=== PATIENT | male | born 1950 | race American Indian/Alaskan Native ===

== ENCOUNTER 2019-05-17 00:22 | Inpatient (IN) | payer MEDICARE, OTHER ==
[2019-05-17] MEDS ORDERED: Acetaminophen 500 MG Tab PO ONE (00:51)
[2019-05-17] MEDS ORDERED: Pantoprazole 40 MG Vial IVPUSH ONE ×2 (00:52→08:19)
--- NOTE | 2019-05-17 00:58 | EDM.PDOC ---
ED HPI GENERAL MEDICAL PROBLEM - General Chief Complaint: Abdominal Pain Stated Complaint: STOOL ISSUES Time Seen by Provider: 05/17/19 00:40 Source of Information: Reports: Patient, Old Records History Limitations: Reports: No Limitations - History of Present Illness INITIAL COMMENTS - FREE TEXT/NARRATIVE: 68 yo NA male presents with dark, loose stools x 4 tonight. No vomiting. Feels a little bit of epigastric fullness. Is on ASA daily. Has a pHx of diverticular dz. Is a little dizzy with standing he says, but is a somewhat vague historian. Complains also of some bilateral shoulder and neck pain that has been worse for the past few days. Stools tonight have not been large in volume per patient. Onset Date: 05/16/19 Duration: Hour(s):, Intermittent Location: Reports: Abdomen Quality: Reports: Dull Severity: Mild Improves with: Reports: None Worsens with: Reports: Other (unknown, ? from his ASA) Context: Reports: Other (See HPI) Associated Symptoms: Denies: Chest Pain, Diaphoresis, Nausea/Vomiting, Shortness of Breath, Syncope Treatments [employer]: Reports: Other (see below) (none) Middle Abdomen Pain Score (Numeric/FACES): 3 - Related Data Allergies Allergy/AdvReac Type Severity Reaction Status Date / Time No Known Allergies Allergy Verified 05/17/19 00:27 Home Meds: Home Meds ClonazePAM [KlonoPIN] 0.5 mg PO BID PRN 12/15/15 [History] Losartan [Cozaar] 25 mg PO DAILY 12/15/15 [History] Tamsulosin [Flomax] 0.4 mg PO DAILY 12/15/15 [History] buPROPion [buPROPion XL] 300 mg PO BID 12/15/15 [History] Aspirin [Adult Low Dose Aspirin EC] 81 mg PO DAILY 01/16/16 [History] Past Medical History HEENT History: Reports: Allergic Rhinitis, Impaired Vision Cardiovascular History: Reports: Hypertension, [place] Respiratory History: Reports: Bronchitis, Recurrent, Sleep Apnea Gastrointestinal History: Reports: Colon Polyp, Diverticulosis, GERD, Hemorrhoids Genitourinary History: Reports: Prostate Disorder, Renal Calculus Musculoskeletal History: Reports: Fracture, Neck Pain, Chronic, Osteoarthritis Psychiatric History: Reports: Anxiety, Depression, Panic Attack Endocrine/Metabolic History: Reports: Obesity/BMI 30+, Vitamin D Deficiency Hematologic History: Reports: Anticoagulation Therapy Oncologic (Cancer) History: Reports: Prostate - Infectious Disease History Infectious Disease History: Reports: Mumps - Past Surgical History Head Surgeries/Procedures: Reports: None Cardiovascular Surgical History: Reports: None Male Surgical History: Reports: Prostate Biopsy, Renal Calculus, Other (See Below) Other Male Surgeries/Procedures: Prostate CA chemo and radiation 2016. Musculoskeletal Surgical History: Reports: Shoulder Replacement, Other (See Below) Oncologic Surgical History: Reports: Other (See Below) Dermatological Surgical History: Reports: None Social & Family History - Family History Family Medical History: Noncontributory - Tobacco Use Smoking Status *Q: Never Smoker Second Hand Smoke Exposure: No - Caffeine Use Caffeine Use: Reports: Coffee, Energy Drinks, Soda, Tea - Alcohol Use Days Per Week of Alcohol Use: 5 Number of Drinks Per Day: 3 Total Drinks Per Week: 15 - Recreational Drug Use Recreational Drug Use: No ED ROS GENERAL - Review of Systems Review Of Systems: See Below Constitutional: Reports: No Symptoms HEENT: Reports: No Symptoms Respiratory: Reports: No Symptoms Cardiovascular: Reports: Lightheadedness (mild with standing) Endocrine: Reports: No Symptoms GI/Abdominal: Reports: Abdominal Pain (mild epigastric fullness), Black Stool, Diarrhea, Melena. Denies: Bloody Stool, Constipation, Distension, Flatus, Hematemesis, Hematochezia, Nausea, Vomiting : Reports: No Symptoms Musculoskeletal: Reports: No Symptoms Skin: Reports: No Symptoms Neurological: Reports: No Symptoms ED EXAM, GI/ABD - Physical Exam Exam: See Below Exam Limited By: No Limitations General Appearance: Alert, WD/WN, No Apparent Distress Eyes: Bilateral: Normal Appearance Ears: Normal External Exam, Normal Canal, Hearing Grossly Normal Nose: Normal Inspection, No Blood Throat/Mouth: Normal Inspection, No Airway Compromise Head: Atraumatic, Normocephalic Neck: Normal Inspection, Non-Tender Respiratory/Chest: No Respiratory Distress, Lungs Clear, Normal Breath Sounds, No Accessory Muscle Use Cardiovascular: Regular Rate, Rhythm, No Edema, Tachycardia GI/Abdominal Exam: Soft, Non-Tender, No Distention, Abnormal Bowel Sounds ( decreased). No: Normal Bowel Sounds, Distended, Guarding, Rigid, Rebound, Tender Extremities: Normal Inspection, Normal Range of Motion, Non-Tender, No Pedal Edema Neurological: Alert, Oriented, CN II-XII Intact, Normal Cognition, No Motor/ Sensory Deficits Psychiatric: Normal Affect, Normal Mood Skin Exam: Warm, Dry, Intact, Normal Color, No Rash Course - Vital Signs Text/Narrative:: Arabella Keyes called @ 0115h Last Recorded V/S: Last Vital Signs Temp 36.4 C 05/17/19 00:50 Pulse 111 H 05/17/19 00:50 Resp 16 05/17/19 00:50 BP 96/64 05/17/19 00:50 Pulse Ox 98 05/17/19 00:50 - Orders/Labs/Meds Orders: Active Orders 24 hr Category Date Time Status Hemoccult [OCCULT BLOOD DIAGNOSTIC] [OP] Stat Lab 05/17/19 01:06 Ordered TYPE AND SCREEN [BBK] Stat Lab 05/17/19 00:30 Received Sodium Chloride 0.9% [Normal Saline] 1,000 ml Med 05/17/19 01:15 Ordered IV ASDIRECTED Labs: Laboratory Tests 05/17/19 05/17/19 Range/Units 00:30 00:45 WBC 12.1 H (4.5-11.0) K/uL RBC 4.38 (4.30-5.90) M/uL Hgb 11.8 L (12.0-15.0) g/dL Hct 35.4 L (40.0-54.0) % MCV 81 (80-98) fL MCH 27 (27-31) pg MCHC 33 (32-36) % Plt Count 282 (150-400) K/uL Sodium 130 L (140-148) mmol/L Potassium 4.2 (3.6-5.2) mmol/L Chloride 96 L (100-108) mmol/L Carbon Dioxide 23 (21-32) mmol/L Anion Gap 15.2 H (5.0-14.0) mmol/L BUN 43 H D (7-18) mg/dL Creatinine 1.3 (0.8-1.3) mg/dL Est Cr Clr Drug Dosing 52.62 mL/min Estimated GFR (MDRD) 55 L (>60) Glucose 102 (74-106) mg/dL Calcium 8.5 (8.5-10.1) mg/dL Meds: Medications Discontinued Medications Generic Name Dose Route Start Last Admin Trade Name Freq PRN Reason Stop Dose Admin Acetaminophen 1,000 mg 05/17/19 00:51 05/17/19 01:07 Tylenol Extra Strength PO 05/17/19 00:52 1,000 mg ONETIME ONE Administration Pantoprazole Sodium 40 mg 05/17/19 00:52 05/17/19 01:08 Protonix Iv IVPUSH 05/17/19 00:53 40 mg ONETIME ONE Administration Sucralfate 1 gm 05/17/19 01:03 Carafate PO 05/17/19 01:04 ONETIME ONE Departure - Departure Time of Disposition: 13:30 Disposition: Admitted As Inpatient 66 Condition: Poor Clinical Impression: Hyponatremia GI bleed Qualifiers: GI bleed type/associated pathology: melena Qualified Code(s): K92.1 - Melena - Discharge Information *PRESCRIPTION DRUG MONITORING PROGRAM REVIEWED*: No *COPY OF PRESCRIPTION DRUG MONITORING REPORT IN PATIENT KATHLEEN: No Referrals: PCP,None [Primary Care Provider] - Forms: ED Department Discharge Sepsis Event Note - Evaluation Sepsis Screening Result: No Definite Risk - Focused Exam Vital Signs: Vital Signs Temp Pulse Resp BP Pulse Ox 05/17/19 00:50 36.4 C 111 H 16 96/64 98 05/17/19 00:48 36.4 C 111 H 16 96/64 98 Date Exam was Performed: 05/17/19 Time Exam was Performed: 01:13 - My Orders Last 24 Hours: My Active Orders 05/17/19 00:30 TYPE AND SCREEN [BBK] Stat 05/17/19 01:06 Hemoccult [OCCULT BLOOD DIAGNOSTIC] [OP] Stat 05/17/19 01:15 Sodium Chloride 0.9% [Normal Saline] 1,000 ml IV ASDIRECTED - Assessment/Plan Last 24 Hours: My Active Orders 05/17/19 00:30 TYPE AND SCREEN [BBK] Stat 05/17/19 01:06 Hemoccult [OCCULT BLOOD DIAGNOSTIC] [OP] Stat 05/17/19 01:15 Sodium Chloride 0.9% [Normal Saline] 1,000 ml IV ASDIRECTED
[2019-05-17] MEDS ORDERED: Sucralfate 1 GM Tab PO ONE (01:03)
[2019-05-17] MEDS ORDERED: Sodium Chloride 0.9% 1,000 ML IV SCH ×2 (01:15→02:09)
[2019-05-17] MEDS ORDERED: Pantoprazole 40 MG Vial IVPUSH SCH ×2 (01:45→21:00)
[2019-05-17] MEDS ORDERED: Non-Formulary Medication 1 Each (Clonazepam [Klonopin] 0.5 MG) PO PRN (02:09)
[2019-05-17] MEDS ORDERED: Albuterol 0.083% 2.5 MG/3 ML Neb Soln NEB PRN (02:09)
[2019-05-17] MEDS ORDERED: Morphine 2 MG/ML SYRINGE IVPUSH PRN (02:09)
[2019-05-17] MEDS ORDERED: Ondansetron 4 MG/2 ML SDV IV PRN (02:09)
[2019-05-17] MEDS ORDERED: LORazepam 2 MG/ML SDV IV PRN (02:09)
[2019-05-17] MEDS ORDERED: Acetaminophen 325 MG Tab PO PRN (02:09)
[2019-05-17] MEDS ORDERED: Ondansetron 4 MG Tab.DIS PO PRN (02:09)
[2019-05-17] MEDS ORDERED: LORazepam 2 MG/ML SDV IVPUSH ONE (02:40)
--- NOTE | 2019-05-17 02:47 | PCM.HP.2 ---
H&P History of Present Illness - General Date of Service: 05/17/19 Admit Problem/Dx: Admission Diagnosis/Problem Admission Diagnosis/Problem Gastrointestinal hemorrhage Source of Information: Patient, Provider History Limitations: Reports: No Limitations - History of Present Illness Initial Comments - Free Text/Narative: 68 yo NA male presents with dark, loose stools x 4 tonight. No vomiting. Feels a little bit of epigastric fullness. Is on ASA daily. Has a pHx of diverticular dz. Is a little dizzy with standing he says, but is a somewhat vague historian. Complains also of some bilateral shoulder and neck pain that has been worse for the past few days. Stools tonight have not been large in volume per patient. Onset Date: 05/16/19 Onset of Symptoms: Reports: Today Duration of Symptoms: Reports: Hour(s): Location: Reports: Abdomen Quality: Reports: Ache Severity: Moderate Improves with: Reports: None Worsens with: Reports: None Associated Symptoms: Reports: Loss of Appetite (last meal at 1 pm), Nausea/ Vomiting (nausea without vomiting) Middle Abdomen Pain Score (Numeric/FACES): 3 - Related Data Allergies/Adverse Reactions: Allergies Allergy/AdvReac Type Severity Reaction Status Date / Time No Known Allergies Allergy Verified 05/17/19 00:27 Home Medications: Home Meds ClonazePAM [KlonoPIN] 0.5 mg PO BID PRN 12/15/15 [History] Losartan [Cozaar] 25 mg PO DAILY 12/15/15 [History] Tamsulosin [Flomax] 0.4 mg PO DAILY 12/15/15 [History] buPROPion [buPROPion XL] 300 mg PO BID 12/15/15 [History] Aspirin [Adult Low Dose Aspirin EC] 81 mg PO DAILY 01/16/16 [History] Past Medical History HEENT History: Reports: Allergic Rhinitis, Impaired Vision Cardiovascular History: Reports: Hypertension, [place] Respiratory History: Reports: Bronchitis, Recurrent, Sleep Apnea Gastrointestinal History: Reports: Colon Polyp, Diverticulosis, GERD, Hemorrhoids Genitourinary History: Reports: Prostate Disorder, Renal Calculus Musculoskeletal History: Reports: Fracture, Neck Pain, Chronic, Osteoarthritis Psychiatric History: Reports: Anxiety, Depression, Panic Attack Endocrine/Metabolic History: Reports: Obesity/BMI 30+, Vitamin D Deficiency Hematologic History: Reports: Anticoagulation Therapy Oncologic (Cancer) History: Reports: Prostate - Infectious Disease History Infectious Disease History: Reports: Mumps - Past Surgical History Head Surgeries/Procedures: Reports: None Cardiovascular Surgical History: Reports: None Male Surgical History: Reports: Prostate Biopsy, Renal Calculus, Other (See Below) Other Male Surgeries/Procedures: Prostate CA chemo and radiation 2016. Musculoskeletal Surgical History: Reports: Shoulder Replacement, Other (See Below) Oncologic Surgical History: Reports: Other (See Below) Dermatological Surgical History: Reports: None Social & Family History - Family History Family Medical History: Noncontributory - Tobacco Use Smoking Status *Q: Never Smoker Second Hand Smoke Exposure: No - Caffeine Use Caffeine Use: Reports: Coffee, Energy Drinks, Soda, Tea - Alcohol Use Days Per Week of Alcohol Use: 5 Number of Drinks Per Day: 3 Total Drinks Per Week: 15 - Recreational Drug Use Recreational Drug Use: No - Living Situation & Occupation Living situation: Reports: , with Family Occupation: Retired (lives with Daughter [place]ina in [place] [facility]. in [place] Term. has 4 adult children.) H&P Review of Systems - Review of Systems: Review Of Systems: See Below General: Reports: Chills, Malaise HEENT: Reports: No Symptoms Pulmonary: Reports: No Symptoms Cardiovascular: Reports: Lightheadedness Gastrointestinal: Reports: Abdominal Pain (epigastric), Black Stool (reports 4 black stools this evening.), Decreased Appetite (last meal at 1 pm. due to stomache with nausea.), Nausea Genitourinary: Reports: No Symptoms, Other (hx of prostate cancer 2016 with radiation/chemo. frequent urination) Musculoskeletal: Reports: Neck Pain, Shoulder Pain (report rotator cuff injury) , Muscle Pain Skin: Reports: No Symptoms Psychiatric: Reports: No Symptoms Neurological: Reports: No Symptoms Hematologic/Lymphatic: Reports: No Symptoms Immunologic: Reports: No Symptoms Exam - Exam Exam: See Below - Vital Signs Vital Signs: Last Vital Signs Temp 36.4 C 05/17/19 01:55 Pulse 98 05/17/19 01:55 Resp 16 05/17/19 01:55 BP 107/61 05/17/19 01:55 Pulse Ox 98 05/17/19 01:55 Weight: 113.398 kg - Exam General: Alert, Oriented, 4 HEENT: PERRLA, Hearing Intact, Mucosa Moist & [place], Nares Patent, Normal Nasal Septum, Posterior Pharynx Clear, Conjunctiva Clear, EOMI, EACs Clear, TMs Clear Neck: Supple, Trachea Midline, 2 Lungs: Clear to Auscultation, Normal Respiratory Effort Cardiovascular: Regular Rate, Regular Rhythm, Normal S1, Normal S2 GI/Abdominal Exam: Normal Bowel Sounds, Soft, Non-Tender, Distended (Male) Exam: Deferred Rectal (Males) Exam: Deferred, Heme + Stool (exam in ER) Back Exam: Normal Inspection, Full Range of Motion, NT Extremities: Normal Inspection, Normal Range of Motion, Non-Tender, No Pedal Edema, Normal Capillary Refill Skin: Warm, Dry, Intact Neurological: Strength Equal Bilateral Neuro Extensive - Mental Status: Alert, Oriented x3, Normal Mood/Affect, Normal Cognition Neuro Extensive - Motor, Sensory, Reflexes: CN II-XII Intact, Normal Gait, Normal Reflexes Psychiatric: Alert, Normal Affect, Normal Mood - Patient Data Lab Results Last 24 hrs: Laboratory Results - last 24 hr 05/17/19 05/17/19 05/17/19 Range/Units 00:30 00:30 00:30 WBC (4.5-11.0) K/uL RBC (4.30-5.90) M/uL Hgb (12.0-15.0) g/dL Hct (40.0-54.0) % MCV (80-98) fL MCH (27-31) pg MCHC (32-36) % Plt Count (150-400) K/uL PT 11.5 (9.5-12.0) sec INR 1.07 (0.80-1.20) Sodium 130 L (140-148) mmol/L Potassium 4.2 (3.6-5.2) mmol/L Chloride 96 L (100-108) mmol/L Carbon Dioxide 23 (21-32) mmol/L Anion Gap 15.2 H (5.0-14.0) mmol/L BUN 43 H D (7-18) mg/dL Creatinine 1.3 (0.8-1.3) mg/dL Est Cr Clr Drug Dosing 52.62 mL/min Estimated GFR (MDRD) 55 L (>60) Glucose 102 (74-106) mg/dL Calcium 8.5 (8.5-10.1) mg/dL Magnesium (1.8-2.4) mg/dL Total Bilirubin (0.2-1.0) mg/dL Direct Bilirubin (0.0-0.2) mg/dL Indirect Bilirubin AST (15-37) U/L ALT (12-78) U/L Alkaline Phosphatase (46-116) U/L Ammonia (11-32) mmol/L Total Protein (6.4-8.2) g/dL Albumin (3.4-5.0) g/dL Globulin (2.3-3.5) g/dL Albumin/Globulin Ratio (1.2-2.2) Amylase (25-115) U/L Lipase (73-393) U/L Blood Type O POSITIVE Gel Antibody Screen Negative 05/17/19 05/17/19 05/17/19 Range/Units 00:30 00:30 00:45 WBC 12.1 H (4.5-11.0) K/uL RBC 4.38 (4.30-5.90) M/uL Hgb 11.8 L (12.0-15.0) g/dL Hct 35.4 L (40.0-54.0) % MCV 81 (80-98) fL MCH 27 (27-31) pg MCHC 33 (32-36) % Plt Count 282 (150-400) K/uL PT (9.5-12.0) sec INR (0.80-1.20) Sodium (140-148) mmol/L Potassium (3.6-5.2) mmol/L Chloride (100-108) mmol/L Carbon Dioxide (21-32) mmol/L Anion Gap (5.0-14.0) mmol/L BUN (7-18) mg/dL Creatinine (0.8-1.3) mg/dL Est Cr Clr Drug Dosing mL/min Estimated GFR (MDRD) (>60) Glucose (74-106) mg/dL Calcium (8.5-10.1) mg/dL Magnesium 1.8 (1.8-2.4) mg/dL Total Bilirubin 0.8 (0.2-1.0) mg/dL Direct Bilirubin 0.28 H (0.0-0.2) mg/dL Indirect Bilirubin 0.52 AST 154 H D (15-37) U/L ALT 159 H (12-78) U/L Alkaline Phosphatase 80 (46-116) U/L Ammonia (11-32) mmol/L Total Protein 6.9 (6.4-8.2) g/dL Albumin 3.2 L (3.4-5.0) g/dL Globulin 3.7 H (2.3-3.5) g/dL Albumin/Globulin Ratio 0.9 L (1.2-2.2) Amylase 51 (25-115) U/L Lipase 85 (73-393) U/L Blood Type Gel Antibody Screen 05/17/19 Range/Units 02:15 WBC (4.5-11.0) K/uL RBC (4.30-5.90) M/uL Hgb (12.0-15.0) g/dL Hct (40.0-54.0) % MCV (80-98) fL MCH (27-31) pg MCHC (32-36) % Plt Count (150-400) K/uL PT (9.5-12.0) sec INR (0.80-1.20) Sodium (140-148) mmol/L Potassium (3.6-5.2) mmol/L Chloride (100-108) mmol/L Carbon Dioxide (21-32) mmol/L Anion Gap (5.0-14.0) mmol/L BUN (7-18) mg/dL Creatinine (0.8-1.3) mg/dL Est Cr Clr Drug Dosing mL/min Estimated GFR (MDRD) (>60) Glucose (74-106) mg/dL Calcium (8.5-10.1) mg/dL Magnesium (1.8-2.4) mg/dL Total Bilirubin (0.2-1.0) mg/dL Direct Bilirubin (0.0-0.2) mg/dL Indirect Bilirubin AST (15-37) U/L ALT (12-78) U/L Alkaline Phosphatase (46-116) U/L Ammonia 22 (11-32) mmol/L Total Protein (6.4-8.2) g/dL Albumin (3.4-5.0) g/dL Globulin (2.3-3.5) g/dL Albumin/Globulin Ratio (1.2-2.2) Amylase (25-115) U/L Lipase (73-393) U/L Blood Type Gel Antibody Screen Result Diagrams: 05/17/19 00:45 05/17/19 00:30 Raciel Results Last 24 hrs: Microbiology 05/17/19 01:19 Stool Occult Blood (RACIEL) - Final Stool / Feces - Stool, Liquid Sepsis Event Note - Evaluation Sepsis Screening Result: No Definite Risk - Focused Exam Vital Signs: Vital Signs Temp Pulse Resp BP Pulse Ox 05/17/19 01:55 36.4 C 98 16 107/61 98 05/17/19 00:50 36.4 C 111 H 16 96/64 98 05/17/19 00:48 36.4 C 111 H 16 96/64 98 Date Exam was Performed: 05/17/19 Time Exam was Performed: 03:18 - Problem List (1) GI bleed SNOMED Code(s): 05631906 ICD Code: K92.2 - GASTROINTESTINAL HEMORRHAGE, UNSPECIFIED Status: Acute Priority: High Current Visit: Yes Qualifiers: GI bleed type/associated pathology: melena Qualified Code(s): K92.1 - Melena (2) Alcohol consumption four to six days per week SNOMED Code(s): 876815402 ICD Code: Z78.9 - OTHER SPECIFIED HEALTH STATUS Status: Acute Priority: High Current Visit: Yes (3) Prostate cancer SNOMED Code(s): 276507758 ICD Code: C61 - MALIGNANT NEOPLASM OF PROSTATE Status: Chronic Priority: Low Current Visit: No Problem List Initiated/Reviewed/Updated: Yes Orders Last 24hrs: Active Orders 24 hr Category Date Time Status CIWAA Assessment [RC] Q4H Care 05/17/19 02:41 Ordered Cardiac Monitoring [RC] .As Directed Care 05/17/19 01:43 Active Cardiac Monitoring [RC] CONTINUOUS Care 05/17/19 02:09 Active Head of Bed Elevation [RC] ASDIRECTED Care 05/17/19 02:09 Active Intake and Output [RC] QSHIFT Care 05/17/19 02:09 Active Notify Provider Consults [RC] ASDIRECTED Care 05/17/19 02:09 Active Notify Provider Vital Signs [RC] ASDIRECTED Care 05/17/19 02:09 Active Oxygen Therapy [RC] PRN Care 05/17/19 02:09 Active Pulse Oximetry [RC] PRN Care 05/17/19 02:09 Active RT Aerosol Therapy [RC] ASDIRECTED Care 05/17/19 02:09 Active Up ad Yazmin [RC] ASDIRECTED Care 05/17/19 02:09 Active VTE/DVT Education [RC] Per Unit Routine Care 05/17/19 02:09 Active Vital Signs [RC] Q4H Care 05/17/19 02:09 Active Consult to Physician [CONS] Routine Cons 05/17/19 02:09 Ordered Nothing per Oral Now Diet [DIET] Diet 05/17/19 Breakfast Active BLOOD BANK HOLD SPECIMEN [BBK] Urgent Lab 05/17/19 02:09 Ordered CBC WITH AUTO DIFF [HEME] Routine Lab 05/17/19 07:10 Ordered RED BLOOD CELLS LP [BBK] Urgent Lab 05/17/19 02:09 Ordered Acetaminophen [Tylenol] Med 05/17/19 02:09 Active 650 mg PO Q4H PRN Albuterol [Proventil Neb Soln] Med 05/17/19 02:09 Active 2.5 mg NEB Q4H PRN ClonazePAM [KlonoPIN] Med 05/17/19 02:09 Active 0.5 mg PO BID PRN LORazepam [Ativan] Med 05/17/19 02:09 Active 1 mg IV Q6H PRN LORazepam [Ativan] Med 05/17/19 02:40 Once 1 mg IVPUSH ONETIME ONE Losartan [Cozaar] Med 05/17/19 09:00 Active 25 mg PO DAILY Morphine Med 05/17/19 02:09 Active 2 mg IVPUSH Q2H PRN Ondansetron [Zofran ODT] Med 05/17/19 02:09 Active 4 mg PO Q6H PRN Ondansetron [Zofran] Med 05/17/19 02:09 Active 4 mg IV Q4H PRN Pantoprazole [ProTONIX IV] Med 05/17/19 01:45 Active 40 mg IVPUSH DAILY Sodium Chloride 0.9% [Normal Saline] 1,000 ml Med 05/17/19 01:15 Active IV ASDIRECTED Sodium Chloride 0.9% [Normal Saline] 1,000 ml Med 05/17/19 02:09 Active IV ASDIRECTED Tamsulosin [Flomax] Med 05/17/19 09:00 Active 0.4 mg PO DAILY buPROPion [Wellbutrin XL] Med 01/08/20 09:00 Active 300 mg PO BID oxyCODONE Med 05/17/19 02:09 Active 10 mg PO Q4H PRN Sequential Compression Device [OM.PC] Per Unit Routine Oth 05/17/19 02:09 Ordered Resuscitation Status Routine Resus Stat 05/17/19 01:54 Ordered Medication Orders Acetaminophen (Tylenol) 650 mg PO Q4H PRN PRN Reason: Pain (Mild 1-3)/fever Albuterol (Proventil Neb Soln) 2.5 mg NEB Q4H PRN PRN Reason: Shortness Of Breath/wheezing Bupropion HCl (Wellbutrin Xl) 300 mg PO BID [facility] Sodium Chloride (Normal Saline) 1,000 mls @ 500 mls/hr IV ASDIRECTED YE Last Admin: 05/17/19 01:16 Dose: 500 mls/hr Sodium Chloride (Normal Saline) 1,000 mls @ 125 mls/hr IV ASDIRECTED [facility] Lorazepam (Ativan) 1 mg IV Q6H PRN PRN Reason: Nausea/Vomiting Lorazepam (Ativan) 1 mg IVPUSH ONETIME ONE Stop: 05/17/19 02:41 Losartan Potassium (Cozaar) 25 mg PO DAILY [facility] Morphine Sulfate (Morphine) 2 mg IVPUSH Q2H PRN PRN Reason: Pain (severe 7-10) Non-Formulary Medication (Clonazepam [Klonopin]) 0.5 mg PO BID PRN PRN Reason: Anxiety Ondansetron HCl (Zofran Odt) 4 mg PO Q6H PRN PRN Reason: Nausea able to take PO Ondansetron HCl (Zofran) 4 mg IV Q4H PRN PRN Reason: Nausea/Vomiting Oxycodone HCl (Oxycodone) 10 mg PO Q4H PRN PRN Reason: Pain (moderate 4-6) Pantoprazole Sodium (Protonix Iv) 40 mg IVPUSH DAILY [facility] Tamsulosin HCl (Flomax) 0.4 mg PO DAILY [facility] Assessment/Plan Comment:: Assessment/Plan Comment:: ASSESSMENT AND PLAN: 68 yo NA male presents with dark, loose stools x 4 tonight. No vomiting. Feels a little bit of epigastric fullness. Is on ASA daily. Has a pHx of diverticular dz. Is a little dizzy with standing he says, but is a somewhat vague historian. Complains also of some bilateral shoulder and neck pain that has been worse for the past few days. Stools tonight have not been large in volume per patient. reports drinks daily, when his stomach hurts he drank a glass of alexis, but usually drinks beer. denies drug use. Onset Date: 05/16/19 labs in ER hemoglobin 11.8 hemocrit 35.4, INR 1.07, ast 154 , alt 159. influenza A&B pending, Type and screen 2 units. stool x one in ER dark black. will admit to Hospital ICU Med-surg overflow for further care and treatment. Gastrointestinal bleed -IV Protonix 80 mg total, then 40 mg IV daily -IV fluids Normal Saline 125ml/hr -blood products - type and cross for 2 units on hold -NPO -consult to Surgery for EGD Colonscopy -serial hemoglobin every 6 hours Alcohol consumption 4 to 6 days per week -Ativan 1 mg IV once for anxiety -last drink Alexis at 5 pm on 05/16/2019 -[facility] protocol Prostate cancer 2016 with chemo and radiation -continue Flomax -has annual appointments for follow up. MAINTENANCE ISSUES -DVT prophylaxis; SCD -GI prophylaxis; Protonix 80 mg given in ER, then IV 40 mg daily -Gonzalez catheter; not indicated -Nutrition; NPO -Nicotine dependence; non-smoker CODE STATUS-FULL CODE ADMISSION STATUS-patient will be admitted to inpatient status, expect at least a 2 night hospital stay for evaluation and management of problems as outlined above. At the time of this admission I do not reasonably expected evaluation and management of this problem will require more than a 96 hour hospital stay. DISPOSITION-anticipate discharge to home after the hospital stay. PRIMARY CARE PROVIDER-Shyanne Whittaker [facility] - Mortality Measure Prognosis:: Good - Mortality Measure Prognosis:: Good
[2019-05-17] MEDS: oxyCODONE 5 MG Tab PO PRN (03:01)
[2019-05-17] MEDS ORDERED: ClonazePAM 0.5 MG Tab PO PRN (07:14)
[2019-05-17] MEDS ORDERED: Propofol 200 MG/20 ML SDV ONE (07:51)
[2019-05-17] MEDS ORDERED: Midazolam 1 MG/ML 2 ML SDV ONE (07:52)
[2019-05-17] MEDS ORDERED: fentaNYL 100 MCG/2 ML SDV ONE (07:52)
[2019-05-17] MEDS ORDERED: Glycopyrrolate 0.2 MG/ML 2 ML SDV IVPUSH ONE (08:45)
[2019-05-17] MEDS ORDERED: Losartan 25 MG Tab PO SCH (09:00)
[2019-05-17] MEDS: Tamsulosin 0.4 MG Cap.ER PO SCH (09:25)
[2019-05-17] MEDS: buPROPion 150 MG Tab.ER PO SCH ×2 (09:25→21:10)
--- NOTE | 2019-05-17 09:25 | PCM.PN ---
- General Info Date of Service: 05/17/19 Subjective Update: Mr. Penn is a 68-year-old gentleman who was admitted early this morning with emesis and upper GI bleed. He is received IV fluids for hydration, there has been a dilutional drop in hemoglobin. No further evidence of active bleeding. EGD performed this morning by Dr. Herzog and shows gastritis with old blood in the stomach. He has been drinking on a daily basis, increased intake over the past few weeks. - Review of Systems General: Reports: Weakness. Denies: Fever, Chills Pulmonary: Reports: No Symptoms Cardiovascular: Reports: No Symptoms Gastrointestinal: Reports: Abdominal Pain, Nausea, Vomiting. Denies: Difficulty Swallowing Genitourinary: Reports: No Symptoms - Patient Data Vitals - Most Recent: Last Vital Signs Temp 96.6 F 05/17/19 08:35 Pulse 86 05/17/19 08:35 Resp 16 05/17/19 08:35 BP 70/41 L 05/17/19 08:35 Pulse Ox 94 L 05/17/19 08:35 Weight - Most Recent: 250 lb I&O - Last 24 Hours: Intake & Output 05/16/19 05/17/19 05/17/19 22:59 06:59 14:59 Output Total 500 Balance -500 Lab Results Last 24 Hours: Laboratory Results - last 24 hr 05/17/19 05/17/19 05/17/19 Range/Units 00:30 00:30 00:30 WBC (4.5-11.0) K/uL RBC (4.30-5.90) M/uL Hgb (12.0-15.0) g/dL Hct (40.0-54.0) % MCV (80-98) fL MCH (27-31) pg MCHC (32-36) % Plt Count (150-400) K/uL Neut % (Auto) (36-66) % Lymph % (Auto) (24-44) % [place] % (Auto) (2-6) % Eos % (Auto) (2-4) % Baso % (Auto) (0-1) % PT 11.5 (9.5-12.0) sec INR 1.07 (0.80-1.20) Sodium 130 L (140-148) mmol/L Potassium 4.2 (3.6-5.2) mmol/L Chloride 96 L (100-108) mmol/L Carbon Dioxide 23 (21-32) mmol/L Anion Gap 15.2 H (5.0-14.0) mmol/L BUN 43 H D (7-18) mg/dL Creatinine 1.3 (0.8-1.3) mg/dL Est Cr Clr Drug Dosing 52.62 mL/min Estimated GFR (MDRD) 55 L (>60) Glucose 102 (74-106) mg/dL Calcium 8.5 (8.5-10.1) mg/dL Magnesium (1.8-2.4) mg/dL Total Bilirubin (0.2-1.0) mg/dL Direct Bilirubin (0.0-0.2) mg/dL Indirect Bilirubin AST (15-37) U/L ALT (12-78) U/L Alkaline Phosphatase (46-116) U/L Ammonia (11-32) mmol/L Total Protein (6.4-8.2) g/dL Albumin (3.4-5.0) g/dL Globulin (2.3-3.5) g/dL Albumin/Globulin Ratio (1.2-2.2) Amylase (25-115) U/L Lipase (73-393) U/L Blood Type O POSITIVE Gel Antibody Screen Negative Crossmatch 05/17/19 05/17/19 05/17/19 Range/Units 00:30 00:30 00:45 WBC 12.1 H (4.5-11.0) K/uL RBC 4.38 (4.30-5.90) M/uL Hgb 11.8 L (12.0-15.0) g/dL Hct 35.4 L (40.0-54.0) % MCV 81 (80-98) fL MCH 27 (27-31) pg MCHC 33 (32-36) % Plt Count 282 (150-400) K/uL Neut % (Auto) (36-66) % Lymph % (Auto) (24-44) % [place] % (Auto) (2-6) % Eos % (Auto) (2-4) % Baso % (Auto) (0-1) % PT (9.5-12.0) sec INR (0.80-1.20) Sodium (140-148) mmol/L Potassium (3.6-5.2) mmol/L Chloride (100-108) mmol/L Carbon Dioxide (21-32) mmol/L Anion Gap (5.0-14.0) mmol/L BUN (7-18) mg/dL Creatinine (0.8-1.3) mg/dL Est Cr Clr Drug Dosing mL/min Estimated GFR (MDRD) (>60) Glucose (74-106) mg/dL Calcium (8.5-10.1) mg/dL Magnesium 1.8 (1.8-2.4) mg/dL Total Bilirubin 0.8 (0.2-1.0) mg/dL Direct Bilirubin 0.28 H (0.0-0.2) mg/dL Indirect Bilirubin 0.52 AST 154 H D (15-37) U/L ALT 159 H (12-78) U/L Alkaline Phosphatase 80 (46-116) U/L Ammonia (11-32) mmol/L Total Protein 6.9 (6.4-8.2) g/dL Albumin 3.2 L (3.4-5.0) g/dL Globulin 3.7 H (2.3-3.5) g/dL Albumin/Globulin Ratio 0.9 L (1.2-2.2) Amylase 51 (25-115) U/L Lipase 85 (73-393) U/L Blood Type Gel Antibody Screen Crossmatch 05/17/19 05/17/19 05/17/19 Range/Units 02:09 02:15 06:58 WBC 8.4 (4.5-11.0) K/uL RBC 3.78 L (4.30-5.90) M/uL Hgb 9.9 L (12.0-15.0) g/dL Hct 30.5 L (40.0-54.0) % MCV 81 (80-98) fL MCH 26 L (27-31) pg MCHC 33 (32-36) % Plt Count 243 (150-400) K/uL Neut % (Auto) 60 (36-66) % Lymph % (Auto) 25 (24-44) % [place] % (Auto) 12 H (2-6) % Eos % (Auto) 2 (2-4) % Baso % (Auto) 1 (0-1) % PT (9.5-12.0) sec INR (0.80-1.20) Sodium (140-148) mmol/L Potassium (3.6-5.2) mmol/L Chloride (100-108) mmol/L Carbon Dioxide (21-32) mmol/L Anion Gap (5.0-14.0) mmol/L BUN (7-18) mg/dL Creatinine (0.8-1.3) mg/dL Est Cr Clr Drug Dosing mL/min Estimated GFR (MDRD) (>60) Glucose (74-106) mg/dL Calcium (8.5-10.1) mg/dL Magnesium (1.8-2.4) mg/dL Total Bilirubin (0.2-1.0) mg/dL Direct Bilirubin (0.0-0.2) mg/dL Indirect Bilirubin AST (15-37) U/L ALT (12-78) U/L Alkaline Phosphatase (46-116) U/L Ammonia 22 (11-32) mmol/L Total Protein (6.4-8.2) g/dL Albumin (3.4-5.0) g/dL Globulin (2.3-3.5) g/dL Albumin/Globulin Ratio (1.2-2.2) Amylase (25-115) U/L Lipase (73-393) U/L Blood Type Gel Antibody Screen Crossmatch See Detail Raciel Results Last 24 Hours: Microbiology 05/17/19 04:50 Influenza Type A Antigen Screen - Final Nasal Aspirate, Unspecified NEGATIVE INFLUENZA A VIRUS AG REFERENCE RANGE: NEGATIVE Influenza Type B Antigen Screen - Final NEGATIVE INFLUENZA B VIRUS AG REFERENCE RANGE: NEGATIVE 05/17/19 01:19 Stool Occult Blood (RACIEL) - Final Stool / Feces - Stool, Liquid Med Orders - Current: Current Medications Acetaminophen (Tylenol) 650 mg PO Q4H PRN PRN Reason: Pain (Mild 1-3)/fever Albuterol (Proventil Neb Soln) 2.5 mg NEB Q4H PRN PRN Reason: Shortness Of Breath/wheezing Bupropion HCl (Wellbutrin Xl) 300 mg PO BID YE Clonazepam (Klonopin) 0.5 mg PO BID PRN PRN Reason: ANXIETY Gabapentin (Neurontin) 400 mg PO Q8H YE Stop: 05/21/19 01:16 Dextrose/Lactated Ringer's (Dextrose 5%-Lactated Ringers) 1,000 mls @ 125 mls/ hr IV ASDIRECTED [facility] Influenza Virus Vaccine (Fluzone High-Dose Syringe) 180 mcg IM .ONCE ONE Stop: 05/17/19 10:01 Lorazepam (Ativan) 1 mg IV Q6H PRN PRN Reason: Nausea/Vomiting Morphine Sulfate (Morphine) 2 mg IVPUSH Q2H PRN PRN Reason: Pain (severe 7-10) Ondansetron HCl (Zofran Odt) 4 mg PO Q6H PRN PRN Reason: Nausea able to take PO Ondansetron HCl (Zofran) 4 mg IV Q4H PRN PRN Reason: Nausea/Vomiting Oxycodone HCl (Oxycodone) 10 mg PO Q4H PRN PRN Reason: Pain (moderate 4-6) Last Admin: 05/17/19 03:01 Dose: 10 mg Pantoprazole Sodium (Protonix Iv) 40 mg IVPUSH Q12H [facility] Tamsulosin HCl (Flomax) 0.4 mg PO DAILY [facility] Discontinued Medications Acetaminophen (Tylenol Extra Strength) 1,000 mg PO ONETIME ONE Stop: 05/17/19 00:52 Last Admin: 05/17/19 01:07 Dose: 1,000 mg Fentanyl (Sublimaze) Confirm Administered Dose 100 mcg .ROUTE .STK-MED ONE Stop: 05/17/19 07:53 Glycopyrrolate (Glycopyrrolate) 0.4 mg IVPUSH ONETIME ONE Stop: 05/17/19 08:46 Last Admin: 05/17/19 09:19 Dose: Not Given Sodium Chloride (Normal Saline) 1,000 mls @ 500 mls/hr IV ASDIRECTED [facility] Last Admin: 05/17/19 01:16 Dose: 500 mls/hr Sodium Chloride (Normal Saline) 1,000 mls @ 125 mls/hr IV ASDIRECTED [facility] Last Admin: 05/17/19 04:31 Dose: 125 mls/hr Lorazepam (Ativan) 1 mg IVPUSH ONETIME ONE Stop: 05/17/19 02:41 Last Admin: 05/17/19 03:27 Dose: 1 mg Losartan Potassium (Cozaar) 25 mg PO DAILY [facility] Midazolam HCl (Versed 1 Mg/Ml) Confirm Administered Dose 2 mg .ROUTE .STK-MED ONE Stop: 05/17/19 07:53 Non-Formulary Medication (Clonazepam [Klonopin]) 0.5 mg PO BID PRN PRN Reason: Anxiety Pantoprazole Sodium (Protonix Iv) 40 mg IVPUSH ONETIME ONE Stop: 05/17/19 00:53 Last Admin: 05/17/19 01:08 Dose: 40 mg Pantoprazole Sodium (Protonix Iv) 40 mg IVPUSH DAILY YE Last Admin: 05/17/19 03:02 Dose: 40 mg Pantoprazole Sodium (Protonix Iv) 40 mg IVPUSH BEDTIME YE Pantoprazole Sodium (Protonix Iv) 40 mg IVPUSH ONETIME ONE Stop: 05/17/19 08:20 Last Admin: 05/17/19 08:30 Dose: 40 mg Propofol (Diprivan 20 Ml) Confirm Administered Dose 200 mg .ROUTE .STK-MED ONE Stop: 05/17/19 07:52 Sucralfate (Carafate) 1 gm PO ONETIME ONE Stop: 05/17/19 01:04 Last Admin: 05/17/19 01:14 Dose: 1 gm - Exam General: Alert, Oriented, Cooperative, Mild Distress Lungs: Clear to Auscultation, Normal Respiratory Effort Cardiovascular: Regular Rate, Regular Rhythm, No Murmurs GI/Abdominal Exam: Soft, Non-Tender, No Organomegaly, No Distention Extremities: Non-Tender, No Pedal Edema Sepsis Event Note - Evaluation Sepsis Screening Result: No Definite Risk - Focused Exam Vital Signs: Vital Signs Temp Pulse Resp BP Pulse Ox 05/17/19 08:35 96.6 F 86 16 70/41 L 94 L 05/17/19 08:30 86 16 56/31 L 94 L 05/17/19 08:25 86 16 60/30 L 98 05/17/19 08:20 86 16 59/31 L 98 05/17/19 08:15 96.8 F 84 16 58/33 L 100 05/17/19 05:20 87 18 135/73 96 05/17/19 02:09 98.2 F 81 22 H 119/69 96 05/17/19 01:55 97.5 F 98 16 107/61 98 05/17/19 00:50 97.6 F 111 H 16 96/64 98 01/08/20 00:48 97.6 F 111 H 16 9664 98 Date Exam was Performed: 05/17/19 Time Exam was Performed: 09:20 - Problem List Review Problem List Initiated/Reviewed/Updated: Yes - My Orders Last 24 Hours: My Active Orders 05/17/19 09:15 Gabapentin [Neurontin] 400 mg PO Q8H 05/17/19 10:00 FLU Vacc [id number](65YR UP)/PF [Fluzone High-Dose Syringe] 180 mcg IM .ONCE ONE 05/17/19 13:00 HGB [HEMOGLOBIN] [HEME] Stat 05/17/19 21:00 HGB [HEMOGLOBIN] [HEME] Stat Pantoprazole [ProTONIX IV] 40 mg IVPUSH Q12H 05/17/19 Breakfast Full Liquid Diet [DIET] 05/18/19 05:00 CBC WITH AUTO DIFF [HEME] Timed COMPREHENSIVE METABOLIC PN,CMP [CHEM] Timed - Plan Plan:: ASSESSMENT AND PLAN: Upper gastrointestinal bleed -IV Protonix 40 mg IV every 12 hours -IV fluids Normal Saline 125ml/hr -blood products - type and cross for 2 units on hold -NPO -Surgical follow-up per Dr. Herzog -serial hemoglobin every 6 hours Alcohol consumption 4 to 6 days per week -Monitor closely for alcohol withdrawal -[facility] protocol Prostate cancer 2016 with chemo and radiation -continue Flomax -has annual appointments for follow up. MAINTENANCE ISSUES -DVT prophylaxis; SCD -GI prophylaxis; Protonix 80 mg given in ER, then IV 40 mg daily -Gonzalez catheter; not indicated -Nutrition; NPO -Nicotine dependence; non-smoker CODE STATUS-FULL CODE ADMISSION STATUS-patient will be admitted to inpatient status, expect at least a 2 night hospital stay for evaluation and management of problems as outlined above. At the time of this admission I do not reasonably expected evaluation and management of this problem will require more than a 96 hour hospital stay. DISPOSITION-anticipate discharge to home after the hospital stay. PRIMARY CARE PROVIDER-Shyanne Whittaker [facility] / [facility] - Mortality Measure Prognosis:: Good
[2019-05-17] MEDS: Gabapentin 400 MG Cap PO SCH ×2 (09:57→19:21)
[2019-05-17] MEDS: Dextrose 5%-Lactated Ringers 1,000 ML IV SCH ×3 (11:13→21:07)
[2019-05-17] MEDS: Pantoprazole 40 MG Vial IVPUSH SCH (21:13)
[2019-05-18] MEDS: Gabapentin 400 MG Cap PO SCH ×2 (01:30→09:03)
[2019-05-18] MEDS: oxyCODONE 5 MG Tab PO PRN (04:41)
[2019-05-18] MEDS: Dextrose 5%-Lactated Ringers 1,000 ML IV SCH (04:42)
[2019-05-18] MEDS: buPROPion 150 MG Tab.ER PO SCH (08:52)
[2019-05-18] MEDS: Tamsulosin 0.4 MG Cap.ER PO SCH (08:52)
[2019-05-18] MEDS: Pantoprazole 40 MG Vial IVPUSH SCH (08:52)
[2019-05-18 10:43] VITALS: BP 149/65; PULSE 62
--- NOTE | 2019-05-18 12:33 | PCM.DCSUM1 ---
Discharge Summary - Hospital Course Brief History: Mr. Oviedo is a 68-year-old gentleman who was admitted through the emergency department with acute upper GI bleed, secondary to underlying gastritis and recent alcohol use. - Discharge Data Discharge Date: 05/18/19 Discharge Disposition: Home, Self-Care 01 Condition: Good - Referral to Home Health Primary Care Physician: PCP None - Discharge Diagnosis/Problem(s) (1) Acute blood loss anemia SNOMED Code(s): 941640477 ICD Code: D62 - ACUTE POSTHEMORRHAGIC ANEMIA Status: Acute Current Visit : Yes (2) Gastritis SNOMED Code(s): 7300821 ICD Code: K29.70 - GASTRITIS, UNSPECIFIED, WITHOUT BLEEDING Status: Acute Current Visit: No (3) GI bleed SNOMED Code(s): 85360856 ICD Code: K92.2 - GASTROINTESTINAL HEMORRHAGE, UNSPECIFIED Status: Acute Priority: High Current Visit: Yes Qualifiers: GI bleed type/associated pathology: melena Qualified Code(s): K92.1 - Melena (4) Hyponatremia SNOMED Code(s): 51661888 ICD Code: E87.1 - HYPO-OSMOLALITY AND HYPONATREMIA Status: Acute Current Visit: Yes (5) Alcohol consumption four to six days per week SNOMED Code(s): 835883031 ICD Code: Z78.9 - OTHER SPECIFIED HEALTH STATUS Status: Acute Priority: High Current Visit: Yes - Patient Summary/Data Consults: Consultations 05/17/19 02:09 Consult to Physician [CONS] Routine Consulting Provider: Timo Herzog Courtesy Call Completed to Consulting Physician: No Reason for Consult: GI bleed, EGD with colonscopy Hospital Course: Mr. Penn is a 68 yo NA male presents with dark, loose stools x 4 tonight. No vomiting. Feels a little bit of epigastric fullness. Is on ASA daily. Has a pHx of diverticular dz. Is a little dizzy with standing he says, but is a somewhat vague historian. Complains also of some bilateral shoulder and neck pain that has been worse for the past few days. Stools tonight have not been large in volume per patient. He was admitted to inpatient status and received IV fluids for hydration. Serial hemoglobin levels were obtained throughout his hospital stay, after initial drop remained stable with no further evidence of active bleeding. He did not develop significant anemia requiring transfusion. On the day after admission he was seen and evaluated by Dr. Herzog, EGD was performed. EGD showed evidence of gastritis with old blood in the stomach but no evidence of acute bleeding. He had been treated with IV Protonix throughout his hospital stay. On discharge she will be placed on Protonix 40 mg twice daily for 2 weeks, then once daily thereafter. He was monitored closely during hospitalization for any evidence of alcohol withdrawal. Had no evidence of withdrawal delirium noted during hospitalization. Activity will be as tolerated and he will be on a soft low residue diet for the next 2 weeks. He was given a prescription for gabapentin 400 mg twice daily for ongoing management of his chronic pain. Follow-up appointment will be scheduled with his primary care provider within 1 week. BMP and CBC should be obtained at the time of follow-up appointment. - Patient Instructions Diet: GI Soft/Low Residue/Low Fiber (For 2 weeks) Activity: As Tolerated Other/Special Instructions: Please schedule follow-up appointment with primary care provider within 1 week. CBC and BMP should be obtained at the time of follow-up appointment. - Discharge Plan *PRESCRIPTION DRUG MONITORING PROGRAM REVIEWED*: No *COPY OF PRESCRIPTION DRUG MONITORING REPORT IN PATIENT KATHLEEN: No Prescriptions/Med Rec: Gabapentin [Neurontin] 400 mg PO BID #60 capsule Pantoprazole Sodium [Protonix] 40 mg PO BID #60 tablet. Home Medications: Home Meds ClonazePAM [KlonoPIN] 0.5 mg PO BID PRN 12/15/15 [History] Losartan [Cozaar] 25 mg PO DAILY 12/15/15 [History] Tamsulosin [Flomax] 0.4 mg PO DAILY 12/15/15 [History] buPROPion [buPROPion XL] 300 mg PO BID 12/15/15 [History] Gabapentin [Neurontin] 400 mg PO BID #60 capsule 05/18/19 [Rx] Pantoprazole Sodium [Protonix] 40 mg PO BID #60 tablet. 05/18/19 [Rx] Referrals: Lady Herzog NP [Ordering Only Provider] - 05/23/19 2:00 pm - Discharge Summary/Plan Comment DC Time >30 min.: No - Patient Data Vitals - Most Recent: Last Vital Signs Temp 97.7 F 05/18/19 10:42 Pulse 62 05/18/19 10:42 Resp 16 05/18/19 10:42 BP 149/65 H 05/18/19 10:42 Pulse Ox 97 05/18/19 10:42 Weight - Most Recent: 250 lb I&O - Last 24 hours: Intake & Output 05/17/19 05/18/19 05/18/19 22:59 06:59 14:59 Intake Total 7261 1453 2003 Balance 1887 1453 2003 Lab Results - Last 24 hrs: Laboratory Results - last 24 hr 05/17/19 05/17/19 05/18/19 Range/Units 13:00 21:00 04:30 WBC 5.2 (4.5-11.0) K/uL RBC 3.53 L (4.30-5.90) M/uL Hgb 10.1 L 9.5 L 9.1 L (12.0-15.0) g/dL Hct 28.9 L (40.0-54.0) % MCV 82 (80-98) fL MCH 26 L (27-31) pg MCHC 32 (32-36) % Plt Count 186 (150-400) K/uL Neut % (Auto) 73 H (36-66) % Lymph % (Auto) 14 L (24-44) % [place] % (Auto) 8 H (2-6) % Eos % (Auto) 5 H (2-4) % Baso % (Auto) 0 (0-1) % Sodium (140-148) mmol/L Potassium (3.6-5.2) mmol/L Chloride (100-108) mmol/L Carbon Dioxide (21-32) mmol/L Anion Gap (5.0-14.0) mmol/L BUN (7-18) mg/dL Creatinine (0.8-1.3) mg/dL Est Cr Clr Drug Dosing mL/min Estimated GFR (MDRD) (>60) Glucose (74-106) mg/dL Calcium (8.5-10.1) mg/dL Total Bilirubin (0.2-1.0) mg/dL AST (15-37) U/L ALT (12-78) U/L Alkaline Phosphatase (46-116) U/L Total Protein (6.4-8.2) g/dL Albumin (3.4-5.0) g/dL Globulin (2.3-3.5) g/dL Albumin/Globulin Ratio (1.2-2.2) 05/18/19 05/18/19 Range/Units 04:30 11:11 WBC (4.5-11.0) K/uL RBC (4.30-5.90) M/uL Hgb 9.5 L (12.0-15.0) g/dL Hct (40.0-54.0) % MCV (80-98) fL MCH (27-31) pg MCHC (32-36) % Plt Count (150-400) K/uL Neut % (Auto) (36-66) % Lymph % (Auto) (24-44) % [place] % (Auto) (2-6) % Eos % (Auto) (2-4) % Baso % (Auto) (0-1) % Sodium 125 L (140-148) mmol/L Potassium 3.6 (3.6-5.2) mmol/L Chloride 99 L (100-108) mmol/L Carbon Dioxide 25 (21-32) mmol/L Anion Gap 4.6 L (5.0-14.0) mmol/L BUN 20 H D (7-18) mg/dL Creatinine 0.8 (0.8-1.3) mg/dL Est Cr Clr Drug Dosing 85.50 mL/min Estimated GFR (MDRD) > 60 (>60) Glucose 113 H (74-106) mg/dL Calcium 8.0 L (8.5-10.1) mg/dL Total Bilirubin 0.5 (0.2-1.0) mg/dL AST 98 H (15-37) U/L ALT 108 H (12-78) U/L Alkaline Phosphatase 58 (46-116) U/L Total Protein 5.7 L (6.4-8.2) g/dL Albumin 2.7 L (3.4-5.0) g/dL Globulin 3.0 (2.3-3.5) g/dL Albumin/Globulin Ratio 0.9 L (1.2-2.2) KEATON Results - Last 24 hrs: Microbiology 05/17/19 07:35 CLOtest - Final Stomach NEGATIVE CLOTEST REFERENCE RANGE: NEGATIVE Med Orders - Current: Current Medications Acetaminophen (Tylenol) 650 mg PO Q4H PRN PRN Reason: Pain (Mild 1-3)/fever Albuterol (Proventil Neb Soln) 2.5 mg NEB Q4H PRN PRN Reason: Shortness Of Breath/wheezing Bupropion HCl (Wellbutrin Xl) 300 mg PO BID ON LICENSE OF [facility] Last Admin: 05/18/19 08:52 Dose: 300 mg Clonazepam (Klonopin) 0.5 mg PO BID PRN PRN Reason: ANXIETY Last Admin: 05/18/19 09:10 Dose: 0.5 mg Gabapentin (Neurontin) 400 mg PO Q8H ON LICENSE OF [facility] Stop: 05/21/19 02:01 Last Admin: 05/18/19 09:03 Dose: 400 mg Lorazepam (Ativan) 1 mg IV Q6H PRN PRN Reason: Nausea/Vomiting Morphine Sulfate (Morphine) 2 mg IVPUSH Q2H PRN PRN Reason: Pain (severe 7-10) Ondansetron HCl (Zofran Odt) 4 mg PO Q6H PRN PRN Reason: Nausea able to take PO Ondansetron HCl (Zofran) 4 mg IV Q4H PRN PRN Reason: Nausea/Vomiting Oxycodone HCl (Oxycodone) 10 mg PO Q4H PRN PRN Reason: Pain (moderate 4-6) Last Admin: 05/18/19 04:41 Dose: 10 mg Pantoprazole Sodium (Protonix Iv) 40 mg IVPUSH Q12H ON [facility] OF [facility] Last Admin: 05/18/19 08:52 Dose: 40 mg Tamsulosin HCl (Flomax) 0.4 mg PO DAILY [facility] Last Admin: 05/18/19 08:52 Dose: 0.4 mg Discontinued Medications Acetaminophen (Tylenol Extra Strength) 1,000 mg PO ONETIME ONE Stop: 05/17/19 00:52 Last Admin: 05/17/19 01:07 Dose: 1,000 mg Fentanyl (Sublimaze) Confirm Administered Dose 100 mcg .ROUTE .STK-MED ONE Stop: 05/17/19 07:53 Glycopyrrolate (Glycopyrrolate) 0.4 mg IVPUSH ONETIME ONE Stop: 05/17/19 08:46 Last Admin: 05/17/19 09:19 Dose: Not Given Sodium Chloride (Normal Saline) 1,000 mls @ 500 mls/hr IV ASDIRECTED ON LICENSE OF [facility] Last Admin: 05/17/19 01:16 Dose: 500 mls/hr Sodium Chloride (Normal Saline) 1,000 mls @ 125 mls/hr IV ASDIRECTED ON LICENSE OF [facility] Last Admin: 05/17/19 04:31 Dose: 125 mls/hr Dextrose/Lactated Ringer's (Dextrose 5%-Lactated Ringers) 1,000 mls @ 125 mls/ hr IV ASDIRECTED ON LICENSE OF [facility] Last Admin: 05/18/19 04:42 Dose: 125 mls/hr Influenza Virus Vaccine (Fluzone High-Dose Syringe) 180 mcg IM .ONCE ONE Stop: 05/17/19 10:01 Last Admin: 05/17/19 10:38 Dose: 180 mcg Lorazepam (Ativan) 1 mg IVPUSH ONETIME ONE Stop: 05/17/19 02:41 Last Admin: 05/17/19 03:27 Dose: 1 mg Losartan Potassium (Cozaar) 25 mg PO DAILY ON LICENSE OF [facility] Last Admin: 05/17/19 09:27 Dose: Not Given Midazolam HCl (Versed 1 Mg/Ml) Confirm Administered Dose 2 mg .ROUTE .STK-MED ONE Stop: 05/17/19 07:53 Non-Formulary Medication (Clonazepam [Klonopin]) 0.5 mg PO BID PRN PRN Reason: Anxiety Pantoprazole Sodium (Protonix Iv) 40 mg IVPUSH ONETIME ONE Stop: 05/17/19 00:53 Last Admin: 05/17/19 01:08 Dose: 40 mg Pantoprazole Sodium (Protonix Iv) 40 mg IVPUSH DAILY ON LICENSE OF [facility] Last Admin: 05/17/19 03:02 Dose: 40 mg Pantoprazole Sodium (Protonix Iv) 40 mg IVPUSH BEDTIME ON LICENSE OF [facility] Pantoprazole Sodium (Protonix Iv) 40 mg IVPUSH ONETIME ONE Stop: 05/17/19 08:20 Last Admin: 05/17/19 08:30 Dose: 40 mg Propofol (Diprivan 20 Ml) Confirm Administered Dose 200 mg .ROUTE .STK-MED ONE Stop: 05/17/19 07:52 Sucralfate (Carafate) 1 gm PO ONETIME ONE Stop: 05/17/19 01:04 Last Admin: 05/17/19 01:14 Dose: 1 gm - Exam General: Reports: Alert, Oriented, Cooperative, No Acute Distress Lungs: Reports: Clear to Auscultation, Normal Respiratory Effort Cardiovascular: Reports: Regular Rate, Regular Rhythm, No Murmurs GI/Abdominal Exam: Soft, Non-Tender, No Organomegaly, No Distention Extremities: Non-Tender, No Pedal Edema
--- NOTE | 2019-05-18 15:25 | OR ---
DATE OF PROCEDURE: 05/17/2019 SURGEON: Timo Herzog MD PREOPERATIVE DIAGNOSIS: Probable upper GI bleeding. POSTOPERATIVE DIAGNOSIS: Diffuse erosive gastritis with "coffee-ground" old blood but no active bleeding. OPERATIVE PROCEDURE: Esophagogastroduodenoscopy with antral biopsies for CLOtest. ANESTHESIA: IV sedation. INDICATIONS FOR PROCEDURE: A 68-year-old male who was admitted overnight with some black stools. He does have history of previous episodes of gastritis requiring upper endoscopy. He had not been on any antisecretory medications. Plan is to proceed with upper GI endoscopy with biopsies as indicated. Potential risks including bleeding and perforation were discussed, and the patient wishes to proceed. DETAILS OF PROCEDURE: The patient was taken to the operating room and placed in a left lateral decubitus position. IV sedation was administered, after which the upper GI endoscope was passed orally through the length of the esophagus and the stomach with retroflexion view of the fundus, and thereafter through the pyloric channel into the proximal duodenum. Findings included normal hypopharynx, larynx, upper esophageal sphincter, and esophageal body. At the EG junction, no significant inflammation was noted. Very tiny hiatal hernia present. No blood or bleeding was seen to this point. As one entered the stomach, there was a large amount of coffee-ground material. This was scattered enough, however, the mucosal surfaces were reasonably well seen. There were multiple erosions in the body and antrum of the stomach. These had some adherent old clot present. No active bleeding was seen. As one passed the pyloric channel, the duodenum was noted to be unremarkable. The blood appeared to be rapidly evacuated from that point with there being no ulcers or signs of pathology within the duodenum or pyloric channel. At this point, biopsies were obtained from the antrum and sent for CLOtest for H pylori. Minimal bleeding from the biopsy site was seen and the procedure was then concluded. It was apparent that the patient's GI bleeding is clearly from these gastric erosions and we will initiate the patient now on a q.12 hour Protonix dosing regimen with a dose to be given IV in the recovery room. Timo Herzog MD /[id number]
== END 2019-05-18 14:00 | disposition home or self-care (01) | DRG 378 ==
LOC: JP.ED 00:22 → JP.ICU 01:50 → JP.MS 14:54
PROVIDERS: ADMIT Hospitalist; ATTEND Hospitalist
PROC: 0DB68ZX Excision of Stomach, Via Natural or Artificial Opening Endoscopic, Diagnostic (ICD-10-PCS; principal; 2019-05-17)
DX: K29.71 Gastritis, unspecified, with bleeding (principal); D62 Acute posthemorrhagic anemia; H54.7 Unspecified visual loss; E87.1 Hypo-osmolality and hyponatremia; I10 Essential (primary) hypertension; G47.30 Sleep apnea, unspecified; K21.9 Gastro-esophageal reflux disease without esophagitis; Z86.010 Personal history of colon polyps; G89.29 Other chronic pain; M19.90 Unspecified osteoarthritis, unspecified site; M25.512 Pain in left shoulder; M25.511 Pain in right shoulder; M54.2 Cervicalgia; K92.1 Melena; F41.9 Anxiety disorder, unspecified; E55.9 Vitamin D deficiency, unspecified; Z85.46 Personal history of malignant neoplasm of prostate; Z92.21 Personal history of antineoplastic chemotherapy; Z92.3 Personal history of irradiation; Z96.619 Presence of unspecified artificial shoulder joint; C61 Malignant neoplasm of prostate; F41.0 Panic disorder [episodic paroxysmal anxiety]; F32.9 Major depressive disorder, single episode, unspecified; E66.9 Obesity, unspecified; Z78.9 Other specified health status; Z79.82 Long term (current) use of aspirin; Z79.899 Other long term (current) drug therapy; I25.2 Old myocardial infarction; Z87.442 Personal history of urinary calculi; Z68.38 Body mass index [BMI] 38.0-38.9, adult; Z23 Encounter for immunization
CPT/HCPCS: 36415; 80048; 80076; 82150; 82272; 83690; 83735; 85027; 85610; 86850; 86900; 86901; A9270 ×2; C9113; J7030; 80053; 82140; 85018; 85025; 86920; 86922; 87081; 87804; 87804-59; 90662; 96361; 96374; 99284; 99284-25; G0008; J2060; J2250; J2704; J3010; J7121

== ENCOUNTER 2019-07-22 09:50 | Inpatient (IN) | payer MEDICARE, OTHER ==
--- NOTE | 2019-07-22 10:04 | EDM.PDOC ---
ED HPI GENERAL MEDICAL PROBLEM - General Chief Complaint: Gastrointestinal Problem Stated Complaint: [facility] Time Seen by Provider: 07/22/19 09:56 Source of Information: Reports: Patient, EMS History Limitations: Reports: No Limitations - History of Present Illness INITIAL COMMENTS - FREE TEXT/NARRATIVE: Patient presents by ambulance from home after multiple episodes of reddish- colored vomiting starting approximately 0400 hrs. today. Yesterday/overnight he had been to a local bar and consumed a moderate amount of blackberry maria teresa. He awoke with abdominal pain in the epigastric region and then vomited several times in a row. Coincident with the vomiting, he was sweaty, felt a fast heartbeat and felt dizzy. He had a bowel movement several hours later which was darker but he is uncertain whether it was black or not. Because of persistent symptoms, his daughter was going to transport him here from their home however he wasn't sure if he was strong enough to make it to the car and consequently paramedics were called. He received a normal saline bolus and Zofran en route from the paramedics. He has not vomited in the last half hour or so. He still feels epigastric abdominal pain and feels shaky but somewhat better. He was hospitalized here in May because of an upper GI bleed presumably related to alcohol gastritis. He underwent upper GI endoscopy and its his recollection that no abnormal lesion or bleeding was found in the stomach but he was placed on some type of stomach acid medication whose name he does not recall. He states that he had been sober from alcohol up until yesterday. Onset: Today Duration: Hour(s): (6) Location: Reports: Abdomen Quality: Reports: Burning, Dull Severity: Moderate Improves with: Reports: None Worsens with: Reports: None Context: Reports: Other (Ingestion of moderate alcohol last night) - Related Data Allergies Allergy/AdvReac Type Severity Reaction Status Date / Time amoxicillin AdvReac Other Verified 07/22/19 10:00 Home Meds: Home Meds ClonazePAM [KlonoPIN] 0.5 mg PO BID PRN 12/15/15 [History] Losartan [Cozaar] 50 mg PO DAILY 12/15/15 [History] buPROPion [buPROPion XL] 300 mg PO DAILY 12/15/15 [History] Gabapentin [Neurontin] 300 mg PO BID 03/14/20 [History] Meclizine [Antivert] 25 mg PO Q8H PRN 07/22/19 [History] Pantoprazole Sodium [Protonix] 40 mg PO DAILY 07/22/19 [History] Past Medical History HEENT History: Reports: Allergic Rhinitis, Impaired Vision Cardiovascular History: Reports: Hypertension, [place] Respiratory History: Reports: Bronchitis, Recurrent, Sleep Apnea Gastrointestinal History: Reports: Colon Polyp, Diverticulosis, GERD, Hemorrhoids Genitourinary History: Reports: Prostate Disorder, Renal Calculus Musculoskeletal History: Reports: Fracture, Neck Pain, Chronic, Osteoarthritis Psychiatric History: Reports: Anxiety, Depression, Panic Attack Endocrine/Metabolic History: Reports: Obesity/BMI 30+, Vitamin D Deficiency Hematologic History: Reports: Anticoagulation Therapy Oncologic (Cancer) History: Reports: Prostate - Infectious Disease History Infectious Disease History: Reports: Mumps - Past Surgical History Head Surgeries/Procedures: Reports: None Cardiovascular Surgical History: Reports: None Male Surgical History: Reports: Prostate Biopsy, Renal Calculus, Other (See Below) Other Male Surgeries/Procedures: Prostate CA chemo and radiation 2015. Musculoskeletal Surgical History: Reports: Shoulder Replacement, Other (See Below) Oncologic Surgical History: Reports: Other (See Below) Dermatological Surgical History: Reports: None Social & Family History - Family History Family Medical History: Noncontributory - Caffeine Use Caffeine Use: Reports: Coffee, Energy Drinks, Soda, Tea - Living Situation & Occupation Living situation: Reports: , with Family Occupation: Retired (lives with Daughter Melina in [place] [facility]. in [place]. has 4 adult children.) ED ROS GENERAL - Review of Systems Review Of Systems: See Below Constitutional: Reports: Malaise HEENT: Reports: No Symptoms Respiratory: Reports: No Symptoms Cardiovascular: Reports: Palpitations Endocrine: Reports: No Symptoms GI/Abdominal: Reports: Abdominal Pain (Epigastric area), Black Stool, Hematemesis (Possibly hematemesis but he is uncertain if it was blood or cranberry juice which she drank early this morning.), Vomiting : Reports: Frequency Musculoskeletal: Reports: No Symptoms Skin: Reports: No Symptoms Neurological: Reports: Dizziness ED EXAM, GI/ABD - Physical Exam Exam: See Below Text/Narrative:: He is lying supine on the cart in room 4. Heart rate is borderline tachycardic. He is able to answer questions appropriately. Exam Limited By: No Limitations General Appearance: Anxious, Mild Distress Respiratory/Chest: No Respiratory Distress Cardiovascular: Regular Rate, Rhythm, Tachycardia, Systolic Murmur (2/6 at the apex) GI/Abdominal Exam: Soft, Tender (Epigastric region). No: Distended, Guarding, Mass Rectal (Males) Exam: Normal Rectal Tone, Black Stool Extremities: Normal Inspection Course - Vital Signs Last Recorded V/S: Last Vital Signs Temp 37.1 C 07/22/19 09:55 Pulse 88 07/22/19 09:55 Resp 15 07/22/19 09:55 BP 86/53 L 07/22/19 09:55 Pulse Ox 98 07/22/19 09:55 - Orders/Labs/Meds Orders: Active Orders 24 hr Category Date Time Status DRUG SCREEN, URINE [URCHEM] Stat Lab 07/22/19 10:15 Ordered UA W/MICROSCOPIC [URIN] Stat Lab 07/22/19 10:15 Ordered Pantoprazole [ProTONIX IV] Med 07/22/19 10:15 Active 80 mg IVPUSH .BOLUS Medication Orders Pantoprazole Sodium (Protonix Iv) 80 mg IVPUSH .BOLUS YE Last Admin: 07/22/19 10:33 Dose: 80 mg Labs: Laboratory Tests 07/22/19 07/22/19 07/22/19 Range/Units 10:37 10:37 10:37 WBC 12.5 H (4.5-11.0) K/uL RBC 3.90 L (4.30-5.90) M/uL Hgb 8.9 L (12.0-15.0) g/dL Hct 28.7 L (40.0-54.0) % MCV 74 L (80-98) fL MCH 23 L (27-31) pg MCHC 31 L (32-36) % Plt Count 293 (150-400) K/uL Neut % (Auto) 82 H (36-66) % Lymph % (Auto) 10 L (24-44) % Hinds % (Auto) 7 H (2-6) % Eos % (Auto) 0 L (2-4) % Baso % (Auto) 0 (0-1) % PT 11.6 (9.5-12.0) sec INR 1.08 (0.80-1.20) Sodium 137 L (140-148) mmol/L Potassium 4.8 (3.6-5.2) mmol/L Chloride 104 (100-108) mmol/L Carbon Dioxide 25 (21-32) mmol/L Anion Gap 12.8 (5.0-14.0) mmol/L BUN 31 H D (7-18) mg/dL Creatinine 1.0 (0.8-1.3) mg/dL Est Cr Clr Drug Dosing 68.40 mL/min Estimated GFR (MDRD) > 60 (>60) Glucose 108 H (74-106) mg/dL Calcium 7.6 L (8.5-10.1) mg/dL Total Bilirubin 0.5 (0.2-1.0) mg/dL AST 26 (15-37) U/L ALT 37 (12-78) U/L Alkaline Phosphatase 76 (46-116) U/L Total Protein 5.6 L (6.4-8.2) g/dL Albumin 2.6 L (3.4-5.0) g/dL Globulin 3.0 (2.3-3.5) g/dL Albumin/Globulin Ratio 0.9 L (1.2-2.2) Lipase 60 L (73-393) U/L Ethyl Alcohol mg/dL Blood Type Gel Antibody Screen 07/22/19 07/22/19 Range/Units 10:37 10:37 WBC (4.5-11.0) K/uL RBC (4.30-5.90) M/uL Hgb (12.0-15.0) g/dL Hct (40.0-54.0) % MCV (80-98) fL MCH (27-31) pg MCHC (32-36) % Plt Count (150-400) K/uL Neut % (Auto) (36-66) % Lymph % (Auto) (24-44) % Hinds % (Auto) (2-6) % Eos % (Auto) (2-4) % Baso % (Auto) (0-1) % PT (9.5-12.0) sec INR (0.80-1.20) Sodium (140-148) mmol/L Potassium (3.6-5.2) mmol/L Chloride (100-108) mmol/L Carbon Dioxide (21-32) mmol/L Anion Gap (5.0-14.0) mmol/L BUN (7-18) mg/dL Creatinine (0.8-1.3) mg/dL Est Cr Clr Drug Dosing mL/min Estimated GFR (MDRD) (>60) Glucose (74-106) mg/dL Calcium (8.5-10.1) mg/dL Total Bilirubin (0.2-1.0) mg/dL AST (15-37) U/L ALT (12-78) U/L Alkaline Phosphatase (46-116) U/L Total Protein (6.4-8.2) g/dL Albumin (3.4-5.0) g/dL Globulin (2.3-3.5) g/dL Albumin/Globulin Ratio (1.2-2.2) Lipase (73-393) U/L Ethyl Alcohol < 3 mg/dL Blood Type O POSITIVE Gel Antibody Screen Negative Meds: Medications Generic Name Dose Route Start Last Admin Trade Name Freq PRN Reason Stop Dose Admin Pantoprazole Sodium 80 mg 07/22/19 10:15 07/22/19 10:33 Protonix Iv IVPUSH 80 mg .BOLUS YE Administration Discontinued Medications Generic Name Dose Route Start Last Admin Trade Name Freq PRN Reason Stop Dose Admin Sodium Chloride 1,000 mls @ 999 mls/hr 07/22/19 10:14 07/22/19 10:27 Normal Saline IV 07/22/19 11:14 999 mls/hr .BOLUS ONE Administration - Re-Assessments/Exams Free Text/Narrative Re-Assessment/Exam: 07/22/19 10:24 Patient will receive 1 L of normal saline by rapid infusion along with 80 mg of pantoprazole as an IV bolus. Given recent history, symptoms, black stool by exam today, I suspect he has an upper GI hemorrhage and will need to be hospitalized. 07/22/19 11:45 I reviewed findings with him including his hemoglobin of 8.9. Discharge hemoglobin after his admission in May was 9.5 and he reports that it was higher than that at clinic recheck. His BUN is elevated at 31 and his white count is 12,500. I reviewed his case with Dr. Alvarez who will arrange admission and further evaluation. The patient is stable at this time. An additional liter of normal saline will be run in by rapid infusion. His heart rate is in the high 90s and blood pressure now is in the 120 range systolic. 07/22/19 11:46 Departure - Departure Time of Disposition: 11:47 Disposition: Admitted As Inpatient 66 Condition: Fair Clinical Impression: Gastrointestinal hemorrhage associated with acute gastritis - Discharge Information Referrals: PCP,None [Primary Care Provider] - Forms: ED Department Discharge Sepsis Event Note - Focused Exam Vital Signs: Vital Signs Temp Pulse Resp BP Pulse Ox 07/22/19 09:55 37.1 C 88 15 86/53 L 98 07/22/19 09:52 95 14 106/62 98 Date Exam was Performed: 07/22/19 Time Exam was Performed: 11:45 - My Orders Last 24 Hours: My Active Orders 07/22/19 10:15 DRUG SCREEN, URINE [URCHEM] Stat UA W/MICROSCOPIC [URIN] Stat Pantoprazole [ProTONIX IV] 80 mg IVPUSH .BOLUS - Assessment/Plan Last 24 Hours: My Active Orders 07/22/19 10:15 DRUG SCREEN, URINE [URCHEM] Stat UA W/MICROSCOPIC [URIN] Stat Pantoprazole [ProTONIX IV] 80 mg IVPUSH .BOLUS
[2019-07-22] MEDS ORDERED: Sodium Chloride 0.9% 1,000 ML IV ONE ×2 (10:14→11:47)
[2019-07-22] MEDS ORDERED: Pantoprazole 40 MG Vial IVPUSH SCH (10:15)
--- NOTE | 2019-07-22 12:50 | PCM.HP.2 ---
H&P History of Present Illness - General Date of Service: 07/22/19 Admit Problem/Dx: Admission Diagnosis/Problem Admission Diagnosis/Problem Acute gastrointestinal hemorrhage Source of Information: Patient, Family, Provider History Limitations: Reports: No Limitations - History of Present Illness Initial Comments - Free Text/Narative: CC: I was throwing up HPI: Adam presents to the emergency room today with nausea, vomiting, dizziness and melena. He reports that he felt well yesterday but had a mild upset stomach when he went to bed. Overnight he developed nausea with multiple episodes of vomiting. Several times the emesis appeared to be red and was concerning for blood. He continued to vomit throughout the night. He describes several episodes of loose stool which was black in color and very tarry. He did have several episodes of diaphoresis with generalized weakness. Anytime he tried to walk he was very wobbly and unsteady on his feet. He was very lightheaded when he tried to stand up. He does describe some mild achy epigastric abdominal pain. The pain does not radiate. It seems to always be there though right now it is pretty minimal. He did not take anything to make the pain better. He has not had any recent travel or sick contacts. He had a similar episode about 2 months ago and was diagnosed with gastritis at that time. He reports that he has been taking his proton pump inhibitor. He reports that he has been compliant with his diet. He reports no alcohol intake since that episode up until last night. Work-up in the emergency room revealed high suspicion for upper gastrointestinal hemorrhage with melena and a hemoglobin of less than 9. He was initially hypotensive but has improved with IV fluids. He received 80 mg of IV pantoprazole. He will be admitted to the hospital for further management. - Related Data Allergies/Adverse Reactions: Allergies Allergy/AdvReac Type Severity Reaction Status Date / Time amoxicillin AdvReac Other Verified 07/22/19 10:00 Home Medications: Home Meds ClonazePAM [KlonoPIN] 0.5 mg PO BID PRN 12/15/15 [History] Losartan [Cozaar] 50 mg PO DAILY 12/15/15 [History] buPROPion [buPROPion XL] 300 mg PO DAILY 12/15/15 [History] Gabapentin [Neurontin] 300 mg PO BID 07/22/19 [History] Meclizine [Antivert] 25 mg PO Q8H PRN 07/22/19 [History] Pantoprazole Sodium [Protonix] 40 mg PO DAILY 07/22/19 [History] Past Medical History HEENT History: Reports: Allergic Rhinitis, Impaired Vision Cardiovascular History: Reports: Hypertension, [place] Respiratory History: Reports: Bronchitis, Recurrent, Sleep Apnea Gastrointestinal History: Reports: Colon Polyp, Diverticulosis, GERD, Hemorrhoids Genitourinary History: Reports: Prostate Disorder, Renal Calculus Musculoskeletal History: Reports: Fracture, Neck Pain, Chronic, Osteoarthritis Psychiatric History: Reports: Anxiety, Depression, Panic Attack Endocrine/Metabolic History: Reports: Obesity/BMI 30+, Vitamin D Deficiency Hematologic History: Reports: Anticoagulation Therapy Oncologic (Cancer) History: Reports: Prostate - Infectious Disease History Infectious Disease History: Reports: Mumps - Past Surgical History Head Surgeries/Procedures: Reports: None Cardiovascular Surgical History: Reports: None Male Surgical History: Reports: Prostate Biopsy, Renal Calculus, Other (See Below) Other Male Surgeries/Procedures: Prostate CA chemo and radiation 2015. Musculoskeletal Surgical History: Reports: Shoulder Replacement, Other (See Below) Oncologic Surgical History: Reports: Other (See Below) Dermatological Surgical History: Reports: None Social & Family History - Family History Family Medical History: Noncontributory - Tobacco Use Smoking Status *Q: Never Smoker Second Hand Smoke Exposure: No - Caffeine Use Caffeine Use: Reports: Coffee, Energy Drinks, Soda, Tea - Recreational Drug Use Recreational Drug Use: No - Living Situation & Occupation Living situation: Reports: , with Family Occupation: Retired (lives with Daughter Melina in [place] [facility]. in [place]. has 4 adult children.) H&P Review of Systems - Review of Systems: Review Of Systems: See Below Free Text/Narrative: A complete 12 point review of systems was obtained. Pertinent positives and negatives are noted in the history of present illness. All other systems were reviewed and were negative except as noted. Exam - Exam Exam: See Below - Vital Signs Vital Signs: Last Vital Signs Temp 37.1 C 07/22/19 09:55 Pulse 91 07/22/19 12:00 Resp 18 07/22/19 12:00 BP 147/79 H 07/22/19 12:00 Pulse Ox 98 07/22/19 12:00 Weight: 108.862 kg - Exam Quality Assessment: No: Supplemental Oxygen General: Alert, Oriented, Cooperative. No: Mild Distress HEENT: Conjunctiva Clear, Mucosa Moist & Ayr. No: Scleral Icterus Neck: Supple, Trachea Midline. No: Lymphadenopathy Lungs: Clear to Auscultation, Normal Respiratory Effort Cardiovascular: Regular Rate, Regular Rhythm, Systolic Murmur GI/Abdominal Exam: Normal Bowel Sounds, Soft, Non-Tender, No Distention, No Mass Back Exam: Normal Inspection, Full Range of Motion Extremities: No Pedal Edema. No: Increased Warmth Peripheral Pulses: 2+: Dorsalis Pedis (L), Dorsalis Pedis (R) Skin: Warm, Dry Neuro Extensive - Mental Status: Alert, Oriented x3, Nl Response to Commands Neuro Extensive - Motor, Sensory, Reflexes: No: Dysarthria, Abnormal Motor, Tremor Psychiatric: Alert, Normal Affect - Patient Data Lab Results Last 24 hrs: Laboratory Results - last 24 hr 07/22/19 07/22/19 07/22/19 Range/Units 10:37 10:37 10:37 WBC 12.5 H (4.5-11.0) K/uL RBC 3.90 L (4.30-5.90) M/uL Hgb 8.9 L (12.0-15.0) g/dL Hct 28.7 L (40.0-54.0) % MCV 74 L (80-98) fL MCH 23 L (27-31) pg MCHC 31 L (32-36) % Plt Count 293 (150-400) K/uL Neut % (Auto) 82 H (36-66) % Lymph % (Auto) 10 L (24-44) % [place]oudoun % (Auto) 7 H (2-6) % Eos % (Auto) 0 L (2-4) % Baso % (Auto) 0 (0-1) % PT 11.6 (9.5-12.0) sec INR 1.08 (0.80-1.20) Sodium 137 L (140-148) mmol/L Potassium 4.8 (3.6-5.2) mmol/L Chloride 104 (100-108) mmol/L Carbon Dioxide 25 (21-32) mmol/L Anion Gap 12.8 (5.0-14.0) mmol/L BUN 31 H D (7-18) mg/dL Creatinine 1.0 (0.8-1.3) mg/dL Est Cr Clr Drug Dosing 68.40 mL/min Estimated GFR (MDRD) > 60 (>60) Glucose 108 H (74-106) mg/dL Calcium 7.6 L (8.5-10.1) mg/dL Total Bilirubin 0.5 (0.2-1.0) mg/dL AST 26 (15-37) U/L ALT 37 (12-78) U/L Alkaline Phosphatase 76 (46-116) U/L Total Protein 5.6 L (6.4-8.2) g/dL Albumin 2.6 L (3.4-5.0) g/dL Globulin 3.0 (2.3-3.5) g/dL Albumin/Globulin Ratio 0.9 L (1.2-2.2) Lipase 60 L (73-393) U/L Ethyl Alcohol mg/dL Blood Type Gel Antibody Screen Crossmatch 07/22/19 07/22/19 Range/Units 10:37 10:37 WBC (4.5-11.0) K/uL RBC (4.30-5.90) M/uL Hgb (12.0-15.0) g/dL Hct (40.0-54.0) % MCV (80-98) fL MCH (27-31) pg MCHC (32-36) % Plt Count (150-400) K/uL Neut % (Auto) (36-66) % Lymph % (Auto) (24-44) % [place] % (Auto) (2-6) % Eos % (Auto) (2-4) % Baso % (Auto) (0-1) % PT (9.5-12.0) sec INR (0.80-1.20) Sodium (140-148) mmol/L Potassium (3.6-5.2) mmol/L Chloride (100-108) mmol/L Carbon Dioxide (21-32) mmol/L Anion Gap (5.0-14.0) mmol/L BUN (7-18) mg/dL Creatinine (0.8-1.3) mg/dL Est Cr Clr Drug Dosing mL/min Estimated GFR (MDRD) (>60) Glucose (74-106) mg/dL Calcium (8.5-10.1) mg/dL Total Bilirubin (0.2-1.0) mg/dL AST (15-37) U/L ALT (12-78) U/L Alkaline Phosphatase (46-116) U/L Total Protein (6.4-8.2) g/dL Albumin (3.4-5.0) g/dL Globulin (2.3-3.5) g/dL Albumin/Globulin Ratio (1.2-2.2) Lipase (73-393) U/L Ethyl Alcohol < 3 mg/dL Blood Type O POSITIVE Gel Antibody Screen Negative Crossmatch See Detail Result Diagrams: 07/22/19 10:37 07/22/19 10:37 Raciel Results Last 24 hrs: Microbiology 07/22/19 10:17 Stool Occult Blood (ARCIEL) - Final Stool / Feces Sepsis Event Note - Evaluation Sepsis Screening Result: No Definite Risk - Focused Exam Vital Signs: Vital Signs Temp Pulse Resp BP Pulse Ox 07/22/19 12:00 91 18 147/79 H 98 07/22/19 11:30 113 H 132/74 07/22/19 09:55 37.1 C 88 15 86/53 L 98 07/22/19 09:52 95 14 106/62 98 Date Exam was Performed: 07/22/19 Time Exam was Performed: 13:13 *Q Meaningful Use (ADM) - VTE *Q VTE Pharmacological Contraindications *Q: Active Hemorrhage - VTE Risk Assess *Q Each Risk Factor Represents 1 Point: Obesity ( BMI > 25 kg/m2) Total Score 1 Point Risk Factors: 1 Each Risk Factor Represents 2 Points: Age 60 - 74 Years, Malignancy (present or previous) Total Score 2 Point Risk Factors: 4 Each Risk Factor Represents 3 Points: None Total Score 3 Point Risk Factors: 0 Each Risk Factor Represents 5 Points: None Total Score 5 Point Risk Factors: 0 Venous Thromboembolism Risk Factor Score *Q: 5 - Problem List (1) Acute gastrointestinal hemorrhage SNOMED Code(s): 51916529 ICD Code: K92.2 - GASTROINTESTINAL HEMORRHAGE, UNSPECIFIED Status: Acute Current Visit: Yes (2) Acute blood loss anemia SNOMED Code(s): 324119025 ICD Code: D62 - ACUTE POSTHEMORRHAGIC ANEMIA Status: Acute Current Visit : No (3) Prostate cancer SNOMED Code(s): 216187467 ICD Code: C61 - MALIGNANT NEOPLASM OF PROSTATE Status: Chronic Priority: Low Current Visit: No Problem List Initiated/Reviewed/Updated: Yes Orders Last 24hrs: Active Orders 24 hr Category Date Time Status Patient Status Manage Transfer [TRANSFER] Routine ADT 07/22/19 12:41 Ordered DRUG SCREEN, URINE [URCHEM] Stat Lab 07/22/19 10:15 Ordered RED BLOOD CELLS LP [BBK] Stat Lab 07/22/19 10:37 Results TYPE AND SCREEN [BBK] Stat Lab 07/22/19 10:37 Results UA W/MICROSCOPIC [URIN] Stat Lab 07/22/19 10:15 Ordered Pantoprazole [ProTONIX IV] Med 07/22/19 10:15 Active 80 mg IVPUSH .BOLUS Resuscitation Status Routine Resus Stat 07/22/19 12:42 Ordered Medication Orders Pantoprazole Sodium (Protonix Iv) 80 mg IVPUSH .BOLUS YE Last Admin: 07/22/19 10:33 Dose: 80 mg Assessment/Plan Comment:: ASSESSMENT AND PLAN - Acute upper gastrointestinal hemorrhage-complicated by anemia due to acute blood loss. Recent diagnosis of gastritis thought secondary to alcohol. Patient reports medication compliance and abstinence from alcohol. Despite these he has had a recurrence which seems more severe than last time. No indication for transfusion just yet but if his hemoglobin drops further he may require transfusion. -Pantoprazole every 12 hours -IV fluids -Type and screen for 2 units -Transfuse if hemoglobin less than 8 or if he is unstable -Repeat hemoglobin tonight -EGD with Dr. Dudley in the morning Essential hypertension-blood pressure low on arrival but has improved with fluids. Planning to hold his antihypertensive medications until we see a trend in his blood pressure. History of prostate cancer- Maintenance issues - - DVT prophylaxis -mechanical with active hemorrhage - GI prophylaxis -PPI - Nutrition -nothing by mouth - Gonzalez catheter -not indicated CODE STATUS -full code Admission justification -this patient will be admitted for inpatient services and is medically appropriate meeting medical necessity for inpatient admission as outlined in my documentation. I reasonably expect the patient will require inpatient services that span a period time over 2 midnights. I reasonably expect this patient to be discharged or transferred within 96 hours [facility]. Disposition -I would anticipate discharge home after the hospital stay Primary care physician - Dr Lady Alvarez M.D. - Mortality Measure Prognosis:: Good
[2019-07-22] MEDS ORDERED: HYDROmorphone 0.5 MG/0.5 ML Syringe IVPUSH PRN (13:32)
[2019-07-22] MEDS ORDERED: Ondansetron 4 MG/2 ML SDV IV PRN (13:32)
[2019-07-22] MEDS ORDERED: Melatonin 3 MG Tab PO PRN (13:32)
[2019-07-22] MEDS ORDERED: Acetaminophen 325 MG Tab PO PRN (13:32)
[2019-07-22] MEDS ORDERED: Magnesium Hydroxide 400 MG/5 ML Susp 30 ML Cup PO PRN (13:32)
[2019-07-22] MEDS ORDERED: oxyCODONE 5 MG Tab PO PRN (13:32)
[2019-07-22] MEDS ORDERED: Ondansetron 4 MG Tab.DIS PO PRN (13:32)
[2019-07-22] MEDS ORDERED: Albuterol 0.083% 2.5 MG/3 ML Neb Soln NEB PRN (13:32)
[2019-07-22] MEDS ORDERED: LORazepam 2 MG/ML SDV IVPUSH PRN (13:32)
[2019-07-22] MEDS: Sodium Chloride 0.9% 1,000 ML IV SCH ×2 (13:45→22:12)
[2019-07-22] MEDS: Gabapentin 300 MG Cap PO SCH (20:53)
[2019-07-22] MEDS: Pantoprazole 40 MG Vial IV SCH (20:53)
[2019-07-22] MEDS: ClonazePAM 0.5 MG Tab PO PRN (22:10)
[2019-07-23] MEDS: Sodium Chloride 0.9% 1,000 ML IV SCH (09:13)
--- NOTE | 2019-07-23 09:30 | PCM.PN ---
- General Info Date of Service: 07/23/19 Subjective Update: There were no acute events overnight. He has ongoing melena. Hemoglobin did drop down to 7 and he did receive 1 unit of blood this morning. No complaints of epigastric pain or nausea. He has not had any vomiting or hematemesis. Vital signs have otherwise been stable. EGD this morning was unremarkable. Functional Status: Reports: Pain Controlled - Review of Systems General: Denies: Fever Gastrointestinal: Reports: Melena. Denies: Abdominal Pain - Patient Data Vitals - Most Recent: Last Vital Signs Temp 36.2 C 07/23/19 09:14 Pulse 70 07/23/19 09:14 Resp 14 07/23/19 09:14 BP 190/90 H 07/23/19 09:14 Pulse Ox 98 07/23/19 06:00 Weight - Most Recent: 108.862 kg I&O - Last 24 Hours: Intake & Output 07/22/19 07/23/19 07/23/19 22:59 06:59 14:59 Intake Total 680 1186 0 Balance 680 1186 0 Lab Results Last 24 Hours: Laboratory Results - last 24 hr 07/22/19 07/22/19 07/22/19 Range/Units 10:15 10:15 10:37 WBC 12.5 H (4.5-11.0) K/uL RBC 3.90 L (4.30-5.90) M/uL Hgb 8.9 L (12.0-15.0) g/dL Hct 28.7 L (40.0-54.0) % MCV 74 L (80-98) fL MCH 23 L (27-31) pg MCHC 31 L (32-36) % Plt Count 293 (150-400) K/uL Neut % (Auto) 82 H (36-66) % Lymph % (Auto) 10 L (24-44) % Tift % (Auto) 7 H (2-6) % Eos % (Auto) 0 L (2-4) % Baso % (Auto) 0 (0-1) % PT (9.5-12.0) sec INR (0.80-1.20) Sodium (140-148) mmol/L Potassium (3.6-5.2) mmol/L Chloride (100-108) mmol/L Carbon Dioxide (21-32) mmol/L Anion Gap (5.0-14.0) mmol/L BUN (7-18) mg/dL Creatinine (0.8-1.3) mg/dL Est Cr Clr Drug Dosing mL/min Estimated GFR (MDRD) (>60) Glucose (74-106) mg/dL Calcium (8.5-10.1) mg/dL Total Bilirubin (0.2-1.0) mg/dL AST (15-37) U/L ALT (12-78) U/L Alkaline Phosphatase (46-116) U/L Total Protein (6.4-8.2) g/dL Albumin (3.4-5.0) g/dL Globulin (2.3-3.5) g/dL Albumin/Globulin Ratio (1.2-2.2) Lipase (73-393) U/L Urine Color Yellow (YELLOW) Urine Appearance Clear (CLEAR) Urine pH 6.5 (5.0-8.0) Ur Specific [place] 1.025 (1.008-1.030) Urine Protein Negative (NEGATIVE) mg/dL Urine Glucose (UA) Negative (NEGATIVE) mg/dL Urine Ketones Negative (NEGATIVE) mg/dL Urine Occult Blood Negative (NEGATIVE) Urine Nitrite Negative (NEGATIVE) Urine Bilirubin Negative (NEGATIVE) Urine Urobilinogen 0.2 (0.2-1.0) EU/dL Ur Leukocyte Esterase Negative (NEGATIVE) Urine RBC Not seen (0-5) Urine WBC Not seen (0-5) Ur Epithelial Cells Rare Amorphous Sediment Not seen Urine Bacteria Not seen Urine Mucus Not seen Urine Opiates Screen Negative (NEGATIVE) Ur Oxycodone Screen Negative (NEGATIVE) Urine Methadone Screen Negative (NEGATIVE) Ur Propoxyphene Screen Negative (NEGATIVE) Ur Barbiturates Screen Negative (NEGATIVE) Ur Tricyclics Screen Negative (NEGATIVE) Ur Phencyclidine Scrn Negative (NEGATIVE) Ur Amphetamine Screen Negative (NEGATIVE) U Methamphetamines Scrn Negative (NEGATIVE) Urine MDMA Screen Negative (NEGATIVE) U Benzodiazepines Scrn Negative (NEGATIVE) U Cocaine Metab Screen Negative (NEGATIVE) U Marijuana (THC) Screen Presumptive positive H (NEGATIVE) Ethyl Alcohol mg/dL Blood Type Gel Antibody Screen Crossmatch 07/22/19 07/22/19 07/22/19 Range/Units 10:37 10:37 10:37 WBC (4.5-11.0) K/uL RBC (4.30-5.90) M/uL Hgb (12.0-15.0) g/dL Hct (40.0-54.0) % MCV (80-98) fL MCH (27-31) pg MCHC (32-36) % Plt Count (150-400) K/uL Neut % (Auto) (36-66) % Lymph % (Auto) (24-44) % Tift % (Auto) (2-6) % Eos % (Auto) (2-4) % Baso % (Auto) (0-1) % PT 11.6 (9.5-12.0) sec INR 1.08 (0.80-1.20) Sodium 137 L (140-148) mmol/L Potassium 4.8 (3.6-5.2) mmol/L Chloride 104 (100-108) mmol/L Carbon Dioxide 25 (21-32) mmol/L Anion Gap 12.8 (5.0-14.0) mmol/L BUN 31 H D (7-18) mg/dL Creatinine 1.0 (0.8-1.3) mg/dL Est Cr Clr Drug Dosing 68.40 mL/min Estimated GFR (MDRD) > 60 (>60) Glucose 108 H (74-106) mg/dL Calcium 7.6 L (8.5-10.1) mg/dL Total Bilirubin 0.5 (0.2-1.0) mg/dL AST 26 (15-37) U/L ALT 37 (12-78) U/L Alkaline Phosphatase 76 (46-116) U/L Total Protein 5.6 L (6.4-8.2) g/dL Albumin 2.6 L (3.4-5.0) g/dL Globulin 3.0 (2.3-3.5) g/dL Albumin/Globulin Ratio 0.9 L (1.2-2.2) Lipase 60 L (73-393) U/L Urine Color (YELLOW) Urine Appearance (CLEAR) Urine pH (5.0-8.0) Ur Specific [place] (1.008-1.030) Urine Protein (NEGATIVE) mg/dL Urine Glucose (UA) (NEGATIVE) mg/dL Urine Ketones (NEGATIVE) mg/dL Urine Occult Blood (NEGATIVE) Urine Nitrite (NEGATIVE) Urine Bilirubin (NEGATIVE) Urine Urobilinogen (0.2-1.0) EU/dL Ur Leukocyte Esterase (NEGATIVE) Urine RBC (0-5) Urine WBC (0-5) Ur Epithelial Cells Amorphous Sediment Urine Bacteria Urine Mucus Urine Opiates Screen (NEGATIVE) Ur Oxycodone Screen (NEGATIVE) Urine Methadone Screen (NEGATIVE) Ur Propoxyphene Screen (NEGATIVE) Ur Barbiturates Screen (NEGATIVE) Ur Tricyclics Screen (NEGATIVE) Ur Phencyclidine Scrn (NEGATIVE) Ur Amphetamine Screen (NEGATIVE) U Methamphetamines Scrn (NEGATIVE) Urine MDMA Screen (NEGATIVE) U Benzodiazepines Scrn (NEGATIVE) U Cocaine Metab Screen (NEGATIVE) U Marijuana (THC) Screen (NEGATIVE) Ethyl Alcohol mg/dL Blood Type O POSITIVE Gel Antibody Screen Negative Crossmatch See Detail 07/22/19 07/22/19 07/23/19 Range/Units 10:37 21:04 05:28 WBC 7.0 (4.5-11.0) K/uL RBC 3.18 L (4.30-5.90) M/uL Hgb 8.2 L 7.0 L (12.0-15.0) g/dL Hct 23.9 L (40.0-54.0) % MCV 75 L (80-98) fL MCH 22 L (27-31) pg MCHC 29 L (32-36) % Plt Count 221 (150-400) K/uL Neut % (Auto) (36-66) % Lymph % (Auto) (24-44) % Tift % (Auto) (2-6) % Eos % (Auto) (2-4) % Baso % (Auto) (0-1) % PT (9.5-12.0) sec INR (0.80-1.20) Sodium (140-148) mmol/L Potassium (3.6-5.2) mmol/L Chloride (100-108) mmol/L Carbon Dioxide (21-32) mmol/L Anion Gap (5.0-14.0) mmol/L BUN (7-18) mg/dL Creatinine (0.8-1.3) mg/dL Est Cr Clr Drug Dosing mL/min Estimated GFR (MDRD) (>60) Glucose (74-106) mg/dL Calcium (8.5-10.1) mg/dL Total Bilirubin (0.2-1.0) mg/dL AST (15-37) U/L ALT (12-78) U/L Alkaline Phosphatase (46-116) U/L Total Protein (6.4-8.2) g/dL Albumin (3.4-5.0) g/dL Globulin (2.3-3.5) g/dL Albumin/Globulin Ratio (1.2-2.2) Lipase (73-393) U/L Urine Color (YELLOW) Urine Appearance (CLEAR) Urine pH (5.0-8.0) Ur Specific [place] (1.008-1.030) Urine Protein (NEGATIVE) mg/dL Urine Glucose (UA) (NEGATIVE) mg/dL Urine Ketones (NEGATIVE) mg/dL Urine Occult Blood (NEGATIVE) Urine Nitrite (NEGATIVE) Urine Bilirubin (NEGATIVE) Urine Urobilinogen (0.2-1.0) EU/dL Ur Leukocyte Esterase (NEGATIVE) Urine RBC (0-5) Urine WBC (0-5) Ur Epithelial Cells Amorphous Sediment Urine Bacteria Urine Mucus Urine Opiates Screen (NEGATIVE) Ur Oxycodone Screen (NEGATIVE) Urine Methadone Screen (NEGATIVE) Ur Propoxyphene Screen (NEGATIVE) Ur Barbiturates Screen (NEGATIVE) Ur Tricyclics Screen (NEGATIVE) Ur Phencyclidine Scrn (NEGATIVE) Ur Amphetamine Screen (NEGATIVE) U Methamphetamines Scrn (NEGATIVE) Urine MDMA Screen (NEGATIVE) U Benzodiazepines Scrn (NEGATIVE) U Cocaine Metab Screen (NEGATIVE) U Marijuana (THC) Screen (NEGATIVE) Ethyl Alcohol < 3 mg/dL Blood Type Gel Antibody Screen Crossmatch 07/23/19 Range/Units 05:28 WBC (4.5-11.0) K/uL RBC (4.30-5.90) M/uL Hgb (12.0-15.0) g/dL Hct (40.0-54.0) % MCV (80-98) fL MCH (27-31) pg MCHC (32-36) % Plt Count (150-400) K/uL Neut % (Auto) (36-66) % Lymph % (Auto) (24-44) % Tift % (Auto) (2-6) % Eos % (Auto) (2-4) % Baso % (Auto) (0-1) % PT (9.5-12.0) sec INR (0.80-1.20) Sodium 141 (140-148) mmol/L Potassium 4.3 (3.6-5.2) mmol/L Chloride 108 (100-108) mmol/L Carbon Dioxide 25 (21-32) mmol/L Anion Gap 8.4 (5.0-14.0) mmol/L BUN 19 H (7-18) mg/dL Creatinine 0.9 (0.8-1.3) mg/dL Est Cr Clr Drug Dosing 76.00 mL/min Estimated GFR (MDRD) > 60 (>60) Glucose 107 H (74-106) mg/dL Calcium 7.6 L (8.5-10.1) mg/dL Total Bilirubin (0.2-1.0) mg/dL AST (15-37) U/L ALT (12-78) U/L Alkaline Phosphatase (46-116) U/L Total Protein (6.4-8.2) g/dL Albumin (3.4-5.0) g/dL Globulin (2.3-3.5) g/dL Albumin/Globulin Ratio (1.2-2.2) Lipase (73-393) U/L Urine Color (YELLOW) Urine Appearance (CLEAR) Urine pH (5.0-8.0) Ur Specific [place] (1.008-1.030) Urine Protein (NEGATIVE) mg/dL Urine Glucose (UA) (NEGATIVE) mg/dL Urine Ketones (NEGATIVE) mg/dL Urine Occult Blood (NEGATIVE) Urine Nitrite (NEGATIVE) Urine Bilirubin (NEGATIVE) Urine Urobilinogen (0.2-1.0) EU/dL Ur Leukocyte Esterase (NEGATIVE) Urine RBC (0-5) Urine WBC (0-5) Ur Epithelial Cells Amorphous Sediment Urine Bacteria Urine Mucus Urine Opiates Screen (NEGATIVE) Ur Oxycodone Screen (NEGATIVE) Urine Methadone Screen (NEGATIVE) Ur Propoxyphene Screen (NEGATIVE) Ur Barbiturates Screen (NEGATIVE) Ur Tricyclics Screen (NEGATIVE) Ur Phencyclidine Scrn (NEGATIVE) Ur Amphetamine Screen (NEGATIVE) U Methamphetamines Scrn (NEGATIVE) Urine MDMA Screen (NEGATIVE) U Benzodiazepines Scrn (NEGATIVE) U Cocaine Metab Screen (NEGATIVE) U Marijuana (THC) Screen (NEGATIVE) Ethyl Alcohol mg/dL Blood Type Gel Antibody Screen Crossmatch Raciel Results Last 24 Hours: Microbiology 07/22/19 10:17 Stool Occult Blood (RACIEL) - Final Stool / Feces Med Orders - Current: Current Medications Acetaminophen (Tylenol) 650 mg PO Q4H PRN PRN Reason: Pain (Mild 1-3)/fever Albuterol (Proventil Neb Soln) 2.5 mg NEB Q4H PRN PRN Reason: Shortness Of Breath/wheezing Bupropion HCl (Wellbutrin Xl) 300 mg PO DAILY [facility] Clonazepam (Klonopin) 0.5 mg PO BID PRN PRN Reason: Anxiety Last Admin: 07/22/19 22:10 Dose: 0.5 mg Gabapentin (Neurontin) 300 mg PO BID [facility] Last Admin: 07/22/19 20:53 Dose: 300 mg Hydromorphone HCl (Dilaudid) 0.5 mg IVPUSH Q2H PRN PRN Reason: Pain (severe 7-10) Last Admin: 07/22/19 23:50 Dose: 0.5 mg Sodium Chloride (Normal Saline) 1,000 mls @ 100 mls/hr IV ASDIRECTED [facility] Last Admin: 07/23/19 09:13 Dose: 100 mls/hr Lorazepam (Ativan) 0.5 mg IVPUSH Q4H PRN PRN Reason: Nausea/Vomiting Magnesium Hydroxide (Milk Of Magnesia) 30 ml PO Q12H PRN PRN Reason: Constipation Melatonin (Melatonin) 9 mg PO BEDTIME PRN PRN Reason: Sleep Last Admin: 07/22/19 22:10 Dose: 9 mg Ondansetron HCl (Zofran Odt) 4 mg PO Q6H PRN PRN Reason: Nausea able to take PO Ondansetron HCl (Zofran) 4 mg IV Q6H PRN PRN Reason: Nausea/Vomiting Oxycodone HCl (Oxycodone) 5 - 10 mg PO Q4H PRN PRN Reason: Pain Pantoprazole Sodium (Protonix Iv) 40 mg IV Q12H [facility] Last Admin: 07/22/19 20:53 Dose: 40 mg Senna/Docusate Sodium (Senna Plus) 1 tab PO BID PRN PRN Reason: Constipation Discontinued Medications Sodium Chloride (Normal Saline) 1,000 mls @ 999 mls/hr IV .BOLUS ONE Stop: 07/22/19 11:14 Last Admin: 07/22/19 10:27 Dose: 999 mls/hr Sodium Chloride (Normal Saline) 1,000 mls @ 999 mls/hr IV .BOLUS ONE Stop: 07/22/19 12:47 Last Admin: 07/22/19 12:26 Dose: 999 mls/hr Pantoprazole Sodium (Protonix Iv) 80 mg IVPUSH .BOLUS [facility] Last Admin: 07/22/19 10:33 Dose: 80 mg - Exam Quality Assessment: No: Supplemental Oxygen General: Alert, Oriented, Cooperative, No Acute Distress Lungs: Clear to Auscultation, Normal Respiratory Effort Cardiovascular: Regular Rate, Regular Rhythm GI/Abdominal Exam: Soft, No Distention Extremities: No Pedal Edema. No: Increased Warmth Skin: Warm, Dry Psy/Mental Status: Alert, Normal Affect Sepsis Event Note - Evaluation Sepsis Screening Result: No Definite Risk - Focused Exam Vital Signs: Vital Signs Temp Temp Pulse Resp BP Pulse Ox 07/23/19 09:14 36.2 C 70 14 190/90 H 07/23/19 09:00 36.2 C 72 16 195/91 H 07/23/19 08:30 35.7 C L 77 16 188/96 H 07/23/19 08:00 35.6 C L 79 17 188/93 H 07/23/19 07:45 35.6 C L 79 17 185/91 H 07/23/19 07:30 35.3 C L 73 13 179/93 H 07/23/19 07:17 36.1 C 72 17 170/85 H 07/23/19 07:04 36.1 C 73 19 164/59 H 07/23/19 06:00 71 16 152/74 H 98 07/23/19 04:00 76 15 156/77 H 100 07/23/19 03:49 82 L 07/23/19 02:00 36.2 C 82 20 163/69 H 97 07/23/19 00:09 36.5 C 93 16 199/93 H 95 07/22/19 23:46 36.5 C 07/22/19 22:00 81 21 H 190/104 H 98 Date Exam was Performed: 07/23/19 Time Exam was Performed: 12:42 - Problem List & Annotations (1) Acute gastrointestinal hemorrhage SNOMED Code(s): 56161658 Code(s): K92.2 - GASTROINTESTINAL HEMORRHAGE, UNSPECIFIED Status: Acute Current Visit: Yes (2) Acute blood loss anemia SNOMED Code(s): 452749808 Code(s): D62 - ACUTE POSTHEMORRHAGIC ANEMIA Status: Acute Current Visit: No (3) Prostate cancer SNOMED Code(s): 740203106 Code(s): C61 - MALIGNANT NEOPLASM OF PROSTATE Status: Chronic Priority: Low Current Visit: No - Problem List Review Problem List Initiated/Reviewed/Updated: Yes - My Orders Last 24 Hours: My Active Orders 07/22/19 10:37 RED BLOOD CELLS LP [BBK] Stat 07/22/19 12:42 Resuscitation Status Routine 07/22/19 13:32 Patient Status [ADT] Routine Antiembolic Devices [RC] .Routine Cardiac Monitoring [RC] Q6H Intake and Output [RC] QSHIFT Notify Provider Consults [RC] ASDIRECTED Notify Provider Vital Signs [RC] ASDIRECTED RT Aerosol Therapy [RC] ASDIRECTED Up With Assistance [RC] ASDIRECTED VTE/DVT Education [RC] Per Unit Routine Vital Signs [RC] Q2HR Consult to Physician [CONS] Routine Acetaminophen [Tylenol] 650 mg PO Q4H PRN Albuterol [Proventil Neb Soln] 2.5 mg NEB Q4H PRN ClonazePAM [KlonoPIN] 0.5 mg PO BID PRN Docusate Sodium/Sennosides [Senna Plus] 1 tab PO BID PRN HYDROmorphone [Dilaudid] 0.5 mg IVPUSH Q2H PRN LORazepam [Ativan] 0.5 mg IVPUSH Q4H PRN Magnesium Hydroxide [Milk of Magnesia] 30 ml PO Q12H PRN Melatonin 9 mg PO BEDTIME PRN Ondansetron [Zofran ODT] 4 mg PO Q6H PRN Ondansetron [Zofran] 4 mg IV Q6H PRN Sodium Chloride 0.9% [Normal Saline] 1,000 ml IV ASDIRECTED oxyCODONE 5 - 10 mg PO Q4H PRN Sequential Compression Device [OM.PC] Routine VTE Pharmacological Contraindications [AST] Routine 07/22/19 21:00 Gabapentin [Neurontin] 300 mg PO BID Pantoprazole [ProTONIX IV] 40 mg IV Q12H 07/22/19 Dinner Nothing per Oral Now Diet [DIET] 07/23/19 06:21 Transfuse Red Blood Cells [COMM] Routine 07/23/19 09:00 buPROPion [Wellbutrin XL] 300 mg PO DAILY 07/23/19 17:00 HGB [HEMOGLOBIN] [HEME] Timed 07/24/19 05:00 CBC W/O DIFF,HEMOGRAM [HEME] Timed (1) - Plan Plan:: ASSESSMENT AND PLAN - Acute upper gastrointestinal hemorrhage, suspected-complicated by anemia due to acute blood loss requiring blood transfusion. EGD showed resolution of gastritis and no evidence for source of bleeding in the examined area of the stomach or first part of the duodenum. Ongoing melena. Vital signs otherwise stable. -PPI -Saline lock IV fluids -Type and screen for 2 units -Transfuse if hemoglobin less than 8 or if he is unstable -Repeat hemoglobin tonight and in the morning -Bowel prep this afternoon -Colonoscopy with Dr. Dudley in the morning Essential hypertension-blood pressure has been elevated. -Restart antihypertensives History of prostate cancer- Maintenance issues - - DVT prophylaxis -mechanical with active hemorrhage - GI prophylaxis -PPI - Nutrition -clear liquids today, nothing by mouth after midnight Disposition -I would anticipate discharge home after the hospital stay Primary care physician - Dr Lady Alvarez M.D.
[2019-07-23] MEDS: Gabapentin 300 MG Cap PO SCH ×2 (10:44→21:17)
[2019-07-23] MEDS: Pantoprazole 40 MG Vial IV SCH ×2 (10:44→21:17)
[2019-07-23] MEDS: buPROPion 150 MG Tab.ER PO SCH (10:46)
[2019-07-23] MEDS: Losartan 50 MG Tab PO SCH (12:59)
[2019-07-23] MEDS ORDERED: Bisacodyl 5 MG Tab PO ONE (14:00)
[2019-07-23] MEDS ORDERED: Polyethylene Glycol 3350 Powder 238 GM Bot PO ONE (14:00)
--- NOTE | 2019-07-24 08:24 | OR ---
DATE OF PROCEDURE: 07/23/2019 SURGEON: Reid Dudley MD PROCEDURE: Esophagogastroduodenoscopy. FINDINGS: Mild reflux at GE junction (biopsied using cold biopsy forceps). COMPLICATIONS: None. PIECE MARKER SMALL ARMS: None. ANESTHESIA: MAC. PREOPERATIVE DIAGNOSIS: Gastrointestinal bleeding. POSTOPERATIVE DIAGNOSIS: Gastrointestinal bleeding. RISKS: Risks, benefits, alternatives, and limitations including, but not limited to infection, bleeding, and perforation were explained to the patient, who wished to proceed. PROCEDURE IN DETAIL: The patient was placed in left lateral decubitus position. EGD scope was introduced and advanced atraumatically to second part of the duodenum. No evidence of duodenitis or ulceration. No gastritis. No abnormalities on retroflexion. GE junction showed mild inflammation. This was then biopsied in all 4 quadrants using cold biopsy forceps. The remainder of esophagus was inspected without abnormality. The patient tolerated the procedure well. Reid Dudley MD /[id number]
[2019-07-24] MEDS ORDERED: Midazolam 1 MG/ML 2 ML SDV ONE (09:02)
[2019-07-24] MEDS ORDERED: Propofol 200 MG/20 ML SDV ONE ×2 (09:02→10:03)
[2019-07-24] MEDS ORDERED: fentaNYL 100 MCG/2 ML SDV ONE (09:02)
--- NOTE | 2019-07-24 09:55 | PCM.PN ---
- General Info Date of Service: 07/24/19 Subjective Update: Mr. Penn has shown further evidence of active bleeding over the last 24 hours with drop in hemoglobin this morning to 7.5. He has experienced mild symptoms of dizziness, otherwise has felt well. He is completed colonoscopy prep for colonoscopy later this morning with Dr. Dudley. - Review of Systems General: Reports: No Symptoms Pulmonary: Reports: No Symptoms Cardiovascular: Reports: Lightheadedness. Denies: Chest Pain, Palpitations, Dyspnea on Exertion Gastrointestinal: Reports: No Symptoms - Patient Data Vitals - Most Recent: Last Vital Signs Temp 96.4 F L 07/24/19 09:30 Pulse 65 07/24/19 09:30 Resp 13 07/24/19 09:30 BP 171/102 H 07/24/19 09:30 Pulse Ox 95 07/24/19 08:00 Weight - Most Recent: 240 lb I&O - Last 24 Hours: Intake & Output 07/23/19 07/24/19 07/24/19 22:59 06:59 14:59 Intake Total 1000 0 Output Total 1 Balance 1000 -1 Lab Results Last 24 Hours: Laboratory Results - last 24 hr 07/22/19 07/23/19 07/24/19 Range/Units 10:37 17:01 05:12 WBC 6.8 (4.5-11.0) K/uL RBC 3.20 L (4.30-5.90) M/uL Hgb 8.8 L 7.5 L (12.0-15.0) g/dL Hct 24.7 L (40.0-54.0) % MCV 77 L (80-98) fL MCH 23 L (27-31) pg MCHC 30 L (32-36) % Plt Count 183 (150-400) K/uL Blood Type O POSITIVE Gel Antibody Screen Negative Crossmatch See Detail Med Orders - Current: Current Medications Acetaminophen (Tylenol) 650 mg PO Q4H PRN PRN Reason: Pain (Mild 1-3)/fever Last Admin: 07/24/19 02:51 Dose: 650 mg Albuterol (Proventil Neb Soln) 2.5 mg NEB Q4H PRN PRN Reason: Shortness Of Breath/wheezing Bupropion HCl (Wellbutrin Xl) 300 mg PO DAILY [facility] Last Admin: 03/15/20 10:46 Dose: 300 mg Clonazepam (Klonopin) 0.5 mg PO BID PRN PRN Reason: Anxiety Last Admin: 07/22/19 22:10 Dose: 0.5 mg Gabapentin (Neurontin) 300 mg PO BID [facility] Last Admin: 07/23/19 21:17 Dose: 300 mg Hydromorphone HCl (Dilaudid) 0.5 mg IVPUSH Q2H PRN PRN Reason: Pain (severe 7-10) Last Admin: 07/22/19 23:50 Dose: 0.5 mg Lorazepam (Ativan) 0.5 mg IVPUSH Q4H PRN PRN Reason: Nausea/Vomiting Losartan Potassium (Cozaar) 50 mg PO DAILY [facility] Last Admin: 07/23/19 12:59 Dose: 50 mg Magnesium Hydroxide (Milk Of Magnesia) 30 ml PO Q12H PRN PRN Reason: Constipation Melatonin (Melatonin) 9 mg PO BEDTIME PRN PRN Reason: Sleep Last Admin: 07/22/19 22:10 Dose: 9 mg Ondansetron HCl (Zofran Odt) 4 mg PO Q6H PRN PRN Reason: Nausea able to take PO Ondansetron HCl (Zofran) 4 mg IV Q6H PRN PRN Reason: Nausea/Vomiting Oxycodone HCl (Oxycodone) 5 - 10 mg PO Q4H PRN PRN Reason: Pain Pantoprazole Sodium (Protonix Iv) 40 mg IV Q12H [facility] Last Admin: 07/23/19 21:17 Dose: 40 mg Senna/Docusate Sodium (Senna Plus) 1 tab PO BID PRN PRN Reason: Constipation Discontinued Medications Bisacodyl (Dulcolax) 10 mg PO ONETIME ONE Stop: 07/23/19 14:01 Last Admin: 07/23/19 13:27 Dose: 10 mg Fentanyl (Sublimaze) Confirm Administered Dose 100 mcg .ROUTE .STK-MED ONE Stop: 07/24/19 09:03 Sodium Chloride (Normal Saline) 1,000 mls @ 999 mls/hr IV .BOLUS ONE Stop: 07/22/19 11:14 Last Admin: 07/22/19 10:27 Dose: 999 mls/hr Sodium Chloride (Normal Saline) 1,000 mls @ 999 mls/hr IV .BOLUS ONE Stop: 07/22/19 12:47 Last Admin: 07/22/19 12:26 Dose: 999 mls/hr Sodium Chloride (Normal Saline) 1,000 mls @ 100 mls/hr IV ASDIRECTED [facility] Last Admin: 07/23/19 09:13 Dose: 100 mls/hr Midazolam HCl (Versed 1 Mg/Ml) Confirm Administered Dose 2 mg .ROUTE .STK-MED ONE Stop: 07/24/19 09:03 Pantoprazole Sodium (Protonix Iv) 80 mg IVPUSH .BOLUS [facility] Last Admin: 07/22/19 10:33 Dose: 80 mg Polyethylene Glycol (Miralax) 238 gm PO ONETIME ONE Stop: 07/23/19 14:01 Last Admin: 07/23/19 13:27 Dose: 238 gm Propofol (Diprivan 20 Ml) Confirm Administered Dose 200 mg .ROUTE .STK-MED ONE Stop: 07/24/19 09:03 - Exam General: Alert, Oriented, Cooperative, No Acute Distress Lungs: Clear to Auscultation, Normal Respiratory Effort Cardiovascular: Regular Rate, Regular Rhythm, No Murmurs GI/Abdominal Exam: Soft, Non-Tender, No Organomegaly, No Distention Sepsis Event Note - Evaluation Sepsis Screening Result: No Definite Risk - Focused Exam Vital Signs: Vital Signs Temp Temp Pulse Resp BP Pulse Ox 07/24/19 09:30 96.4 F L 65 13 171/102 H 07/24/19 09:15 96.4 F L 64 11 L 162/88 H 07/24/19 09:01 97 F 65 18 118/83 07/24/19 08:45 96.7 F L 67 10 L 149/83 H 07/24/19 08:00 97.1 F 65 15 143/83 H 95 07/24/19 06:00 70 16 152/83 H 92 L 07/24/19 04:00 74 17 126/54 L 90 L 07/24/19 02:03 75 18 163/86 H 94 L 07/24/19 00:05 73 16 149/77 H 94 L 07/23/19 22:00 97.6 F 70 19 149/76 H 97 Date Exam was Performed: 07/24/19 Time Exam was Performed: 09:50 - Problem List Review Problem List Initiated/Reviewed/Updated: Yes - My Orders Last 24 Hours: My Active Orders 07/24/19 08:25 Transfuse Red Blood Cells [COMM] Stat 07/24/19 11:00 HGB [HEMOGLOBIN] [HEME] Stat 07/24/19 17:00 HGB [HEMOGLOBIN] [HEME] Stat 07/24/19 23:00 HGB [HEMOGLOBIN] [HEME] Stat 07/25/19 05:11 HGB [HEMOGLOBIN] [HEME] AM - Plan Plan:: ASSESSMENT AND PLAN - Acute upper gastrointestinal hemorrhage, suspected-complicated by anemia due to acute blood loss requiring blood transfusion. EGD showed resolution of gastritis and no evidence for source of bleeding in the examined area of the stomach or first part of the duodenum. Hemodynamically stable but evidence of ongoing blood loss with decrease in hemoglobin level -PPI -Saline lock IV fluids -Type and screen for 2 units -Use 1 unit of red blood cells this morning -Repeat hemoglobin very 6 hours -Bowel prep this afternoon -Colonoscopy with Dr. Dudley today Essential hypertension-blood pressure has been elevated. -Restart antihypertensives History of prostate cancer- Maintenance issues - - DVT prophylaxis -mechanical with active hemorrhage - GI prophylaxis -PPI - Nutrition -clear liquids today, nothing by mouth after midnight Disposition -I would anticipate discharge home after the hospital stay Primary care physician - Dr Lady Herzog
[2019-07-24] MEDS: Gabapentin 300 MG Cap PO SCH ×2 (10:59→20:29)
[2019-07-24] MEDS: Losartan 50 MG Tab PO SCH (10:59)
[2019-07-24] MEDS: buPROPion 150 MG Tab.ER PO SCH (10:59)
[2019-07-24] MEDS: Pantoprazole 40 MG Vial IV SCH ×2 (10:59→20:27)
--- NOTE | 2019-07-24 14:59 | OR ---
DATE OF PROCEDURE: 07/24/2019 SURGEON: Reid Dudley MD PROCEDURE: Colonoscopy. FINDINGS: Diverticulosis without evidence of diverticulitis or bleeding. Transverse colon polyp, approximately 5 mm, completely removed using hot snare wire. COMPLICATIONS: None. TEEN COUNSELOR: None. ANESTHESIA: MAC. PREOPERATIVE DIAGNOSIS: Gastrointestinal bleeding. POSTOPERATIVE DIAGNOSIS: Gastrointestinal bleeding. PROCEDURE IN DETAIL: The patient was placed in left lateral decubitus position. Digital rectal exam was performed without abnormality. Scope was introduced and advanced atraumatically to the ileocecal valve. Scope was brought back through the ascending, transverse, descending colon, and retroflexed. There was no evidence of old or new blood. No masses. There was a polyp in the transverse colon, which was completely removed using hot snare wire. As far as the etiology of blood, diverticulosis is a possibility, however, there was no active bleeding noted. Reid Dudley MD /[id number]
[2019-07-25] MEDS ORDERED: Pantoprazole 40 MG Tab.CR PO SCH (07:33)
[2019-07-25] MEDS: ClonazePAM 0.5 MG Tab PO PRN (07:51)
[2019-07-25] MEDS: Losartan 50 MG Tab PO SCH (08:50)
[2019-07-25] MEDS: buPROPion 150 MG Tab.ER PO SCH (08:50)
[2019-07-25] MEDS: Gabapentin 300 MG Cap PO SCH (08:50)
[2019-07-25 14:28] VITALS: BP 178/79; PULSE 75
--- NOTE | 2019-07-25 14:37 | PCM.DCSUM1 ---
Discharge Summary - Hospital Course Brief History: Mr. Penn is a 68-year-old gentleman who was admitted through the emergency department with hematemesis and melenic stools, secondary to GI bleed. - Discharge Data Discharge Date: 07/25/19 Discharge Disposition: Home, Self-Care 01 Condition: Fair - Referral to Home Health Primary Care Physician: PCP None - Discharge Diagnosis/Problem(s) (1) Acute gastrointestinal hemorrhage SNOMED Code(s): 81504795 ICD Code: K92.2 - GASTROINTESTINAL HEMORRHAGE, UNSPECIFIED Status: Acute Current Visit: Yes (2) Acute blood loss anemia SNOMED Code(s): 023163952 ICD Code: D62 - ACUTE POSTHEMORRHAGIC ANEMIA Status: Acute Current Visit : No - Patient Summary/Data Consults: Consultations 07/22/19 13:32 Consult to Physician [CONS] Routine Consulting Provider: Reid Dudley Call Completed to Consulting Physician: Yes Reason for Consult: GI bleed Person Notified: RW Date Notified: 07/22/19 Special Instructions: EGD in am Hospital Course: Mr. Penn presented to the emergency room with nausea, vomiting, dizziness and melena. He reports that he felt well until the evening prior to admission but had a mild upset stomach when he went to bed. Overnight he developed nausea with multiple episodes of vomiting. Several times the emesis appeared to be red and was concerning for blood. He continued to vomit throughout the night. He describes several episodes of loose stool which was black in color and very tarry. He did have several episodes of diaphoresis with generalized weakness. Anytime he tried to walk he was very wobbly and unsteady on his feet. He was very lightheaded when he tried to stand up. He does describe some mild achy epigastric abdominal pain. The pain does not radiate. It seems to always be there though right now it is pretty minimal. He had a similar episode about 2 months ago and was diagnosed with gastritis at that time. He reports that he has been taking his proton pump inhibitor. He reports that he has been compliant with his diet. He reports no alcohol intake for the past few months. Work-up in the emergency room revealed high suspicion for upper gastrointestinal hemorrhage with melena and a hemoglobin of less than 9. He was initially hypotensive but has improved with IV fluids. He received 80 mg of IV pantoprazole. On admission he was continued on IV Protonix and given IV fluids for hydration. The morning after admission he was seen and evaluated by Dr. Dudley, EGD was performed which showed no significant abnormalities or potential source of bleeding. He was given a colonoscopy prep that day and had a colonoscopy the following morning, he did have some diverticuli but no evidence of active bleeding or blood loss. On the morning after admission his hemoglobin did drop close to 7 and he was transfused 1 unit of red blood cells. Following morning hemoglobin was 7.5 with evidence of ongoing active bleeding so he was transfused a second unit of red blood cells. Following that hemoglobin remained stable with no further evidence of active bleeding. He tolerated a soft low residue diet prior to discharge. Activity will be as tolerated and he will be on a soft low residue diet over the next week. Follow- up appointment will be scheduled with his primary care provider within 1 week, hemoglobin will be obtained at the time of follow-up appointment. If he has recurrent bleeding consider transfer to a tertiary care facility for further evaluation of probable small intestinal bleed. - Patient Instructions Diet: GI Soft/Low Residue/Low Fiber (For 1 week) Activity: As Tolerated Other/Special Instructions: Please schedule follow-up appointment with primary care provider within 1 week. Hemoglobin level should be obtained at the time of follow-up appointment. - Discharge Plan *PRESCRIPTION DRUG MONITORING PROGRAM REVIEWED*: Not Applicable *COPY OF PRESCRIPTION DRUG MONITORING REPORT IN PATIENT KATHLEEN: Not Applicable Prescriptions/Med Rec: Pantoprazole [ProTONIX] 40 mg PO BIDAC #30 tab.cr Home Medications: Home Meds ClonazePAM [KlonoPIN] 0.5 mg PO BID PRN 12/15/15 [History] Losartan [Cozaar] 50 mg PO DAILY 12/15/15 [History] buPROPion [buPROPion XL] 300 mg PO DAILY 12/15/15 [History] Gabapentin [Neurontin] 300 mg PO BID 07/22/19 [History] Meclizine [Antivert] 25 mg PO Q8H PRN 07/22/19 [History] Pantoprazole [ProTONIX] 40 mg PO BIDAC #30 tab.cr 07/25/19 [Rx] Referrals: Lady Herzog NP [Ordering Only Provider] - - Discharge Summary/Plan Comment DC Time >30 min.: No - Patient Data Vitals - Most Recent: Last Vital Signs Temp 97.5 F 07/25/19 14:00 Pulse 75 07/25/19 14:00 Resp 13 07/25/19 14:00 BP 178/79 H 07/25/19 14:00 Pulse Ox 99 07/25/19 14:00 Weight - Most Recent: 249 lb 0.017 oz I&O - Last 24 hours: Intake & Output 07/24/19 07/25/19 07/25/19 22:59 06:59 14:59 Intake Total 620 800 Balance 620 800 Lab Results - Last 24 hrs: Laboratory Results - last 24 hr 07/24/19 07/24/19 07/25/19 Range/Units 17:04 23:00 04:52 Hgb 9.0 L 8.7 L 8.9 L (12.0-15.0) g/dL 07/25/19 Range/Units 13:00 Hgb 9.3 L (12.0-15.0) g/dL Med Orders - Current: Current Medications Acetaminophen (Tylenol) 650 mg PO Q4H PRN PRN Reason: Pain (Mild 1-3)/fever Last Admin: 07/24/19 02:51 Dose: 650 mg Albuterol (Proventil Neb Soln) 2.5 mg NEB Q4H PRN PRN Reason: Shortness Of Breath/wheezing Bupropion HCl (Wellbutrin Xl) 300 mg PO DAILY [facility] Last Admin: 07/25/19 08:50 Dose: 300 mg Clonazepam (Klonopin) 0.5 mg PO BID PRN PRN Reason: Anxiety Last Admin: 07/25/19 07:51 Dose: 0.5 mg Gabapentin (Neurontin) 300 mg PO BID [facility] Last Admin: 07/25/19 08:50 Dose: 300 mg Hydromorphone HCl (Dilaudid) 0.5 mg IVPUSH Q2H PRN PRN Reason: Pain (severe 7-10) Last Admin: 07/22/19 23:50 Dose: 0.5 mg Lorazepam (Ativan) 0.5 mg IVPUSH Q4H PRN PRN Reason: Nausea/Vomiting Losartan Potassium (Cozaar) 50 mg PO DAILY [facility] Last Admin: 07/25/19 08:50 Dose: 50 mg Magnesium Hydroxide (Milk Of Magnesia) 30 ml PO Q12H PRN PRN Reason: Constipation Melatonin (Melatonin) 9 mg PO BEDTIME PRN PRN Reason: Sleep Last Admin: 07/22/19 22:10 Dose: 9 mg Ondansetron HCl (Zofran Odt) 4 mg PO Q6H PRN PRN Reason: Nausea able to take PO Ondansetron HCl (Zofran) 4 mg IV Q6H PRN PRN Reason: Nausea/Vomiting Oxycodone HCl (Oxycodone) 5 - 10 mg PO Q4H PRN PRN Reason: Pain Last Admin: 07/24/19 21:36 Dose: 5 mg Pantoprazole Sodium (Protonix) 40 mg PO BIDAC YE Last Admin: 07/25/19 08:49 Dose: 40 mg Senna/Docusate Sodium (Senna Plus) 1 tab PO BID PRN PRN Reason: Constipation Discontinued Medications Bisacodyl (Dulcolax) 10 mg PO ONETIME ONE Stop: 07/23/19 14:01 Last Admin: 07/23/19 13:27 Dose: 10 mg Fentanyl (Sublimaze) Confirm Administered Dose 100 mcg .ROUTE .STK-MED ONE Stop: 07/24/19 09:03 Sodium Chloride (Normal Saline) 1,000 mls @ 999 mls/hr IV .BOLUS ONE Stop: 07/22/19 11:14 Last Admin: 07/22/19 10:27 Dose: 999 mls/hr Sodium Chloride (Normal Saline) 1,000 mls @ 999 mls/hr IV .BOLUS ONE Stop: 07/22/19 12:47 Last Admin: 07/22/19 12:26 Dose: 999 mls/hr Sodium Chloride (Normal Saline) 1,000 mls @ 100 mls/hr IV ASDIRECTED [facility] Last Admin: 07/23/19 09:13 Dose: 100 mls/hr Midazolam HCl (Versed 1 Mg/Ml) Confirm Administered Dose 2 mg .ROUTE .STK-MED ONE Stop: 07/24/19 09:03 Pantoprazole Sodium (Protonix Iv) 80 mg IVPUSH .BOLUS [facility] Last Admin: 07/22/19 10:33 Dose: 80 mg Pantoprazole Sodium (Protonix Iv) 40 mg IV Q12H [facility] Last Admin: 07/24/19 20:27 Dose: 40 mg Polyethylene Glycol (Miralax) 238 gm PO ONETIME ONE Stop: 07/23/19 14:01 Last Admin: 07/23/19 13:27 Dose: 238 gm Propofol (Diprivan 20 Ml) Confirm Administered Dose 200 mg .ROUTE .STK-MED ONE Stop: 07/24/19 09:03 Propofol (Diprivan 20 Ml) Confirm Administered Dose 200 mg .ROUTE .STK-MED ONE Stop: 07/24/19 10:04 - Exam General: Reports: Alert, Oriented, Cooperative, No Acute Distress Lungs: Reports: Clear to Auscultation, Normal Respiratory Effort Cardiovascular: Reports: Regular Rate, Regular Rhythm, No Murmurs GI/Abdominal Exam: Soft, Non-Tender, No Organomegaly, No Distention Extremities: Non-Tender, No Pedal Edema *Q Meaningful Use (DIS) - VTE *Q VTE Pharmacological Contraindications *Q: Active Hemorrhage
== END 2019-07-25 16:00 | disposition home or self-care (01) | DRG 391 ==
LOC: JP.ED 09:50 → JP.ICU 12:41
PROVIDERS: ADMIT Internal Medicine; ATTEND Internal Medicine
PROC: 30233N1 Transfusion of Nonautologous Red Blood Cells into Peripheral Vein, Percutaneous Approach (ICD-10-PCS; 2019-07-23)
PROC: 0DB48ZX Excision of Esophagogastric Junction, Via Natural or Artificial Opening Endoscopic, Diagnostic (ICD-10-PCS; 2019-07-23)
PROC: 0DBL8ZZ Excision of Transverse Colon, Via Natural or Artificial Opening Endoscopic (ICD-10-PCS; principal; 2019-07-24)
DX: K57.90 Diverticulosis of intestine, part unspecified, without perforation or abscess without bleeding (principal); K29.01 Acute gastritis with bleeding; D62 Acute posthemorrhagic anemia; K92.1 Melena; H54.7 Unspecified visual loss; I10 Essential (primary) hypertension; Z86.010 Personal history of colon polyps; Z87.442 Personal history of urinary calculi; G47.30 Sleep apnea, unspecified; K21.9 Gastro-esophageal reflux disease without esophagitis; M54.2 Cervicalgia; G89.29 Other chronic pain; M19.90 Unspecified osteoarthritis, unspecified site; F41.9 Anxiety disorder, unspecified; F32.9 Major depressive disorder, single episode, unspecified; Z85.46 Personal history of malignant neoplasm of prostate; Z92.21 Personal history of antineoplastic chemotherapy; Z92.3 Personal history of irradiation; E66.9 Obesity, unspecified; Z88.1 Allergy status to other antibiotic agents; E55.9 Vitamin D deficiency, unspecified; Z96.619 Presence of unspecified artificial shoulder joint; C61 Malignant neoplasm of prostate; Z79.899 Other long term (current) drug therapy; Z88.0 Allergy status to penicillin; I25.2 Old myocardial infarction; Z79.01 Long term (current) use of anticoagulants
CPT/HCPCS: 36415; 80053; 80305; 80307; 81001; 82272; 83690; 85025; 85610; 86850; 86900; 86901; 86920 ×2; 86922 ×2; 99284; C9113; J7030 ×2; 36430; 36600; 80048; 85018; 85027; A9270-GY; J1170; J2250; J2704; J3010; P9016

== ENCOUNTER 2024-12-27 13:10 | Emergency (ER) | payer MEDICARE, OTHER ==
[2024-12-27 13:25] LABS: BASOPHILS ABSOLUTE AUTO 0.06 K/uL (0.00-0.10); BASOPHILS PERCENT AUTO 0.5 % (0.1-1.3); EOSINOPHILS ABSOLUTE AUTO 0.19 K/uL (0.00-0.40); EOSINOPHILS PERCENT AUTO 1.4 % (0.0-5.4); IMMATURE GRAN ABSOLUTE AUTO 0.05 K/uL (0.00-0.23); IMMATURE GRAN PERCENT AUTO 0.4 % (0.0-0.7); LYMPHOCYTES ABSOLUTE AUTO 1.95 K/uL (0.8-3.3); LYMPHOCYTES PERCENT AUTO 14.7 % (11.4-47.7); MONOCYTES ABSOLUTE AUTO 0.84 K/uL (0.20-0.90); MONOCYTES PERCENT AUTO 6.3 % (3.3-12.6); NEUTROPHILS ABSOLUTE AUTO 10.16 K/uL (1.0-7.6); NEUTROPHILS PERCENT AUTO 76.7 % (40.0-78.1); PLATELET COUNT,PLT 285 K/uL (130-375); RED BLOOD CELL COUNT 4.75 M/uL (4.14-5.76); WHITE BLOOD CELL COUNT,WBC 13.3 K/uL (3.2-11.0)
[2024-12-27 13:45] LABS: INR 1.0
[2024-12-27 13:49] LABS: A/G RATIO 1.1 (1.2-2.2); ALANINE AMINOTRANSFERASE,ALT 20 U/L (12-78); ASPARTATE AMNIOTRANSFERASE,AST 16 U/L (15-37); BILIRUBIN TOTAL 0.9 mg/dL (0.2-1.0); BLOOD UREA NITROGEN,BUN 15 mg/dL (7-18); CARBON DIOXIDE,CO2 31 mmol/L (21-32); CHLORIDE,CL 103 mmol/L (100-108); CREATININE 0.8 mg/dL (0.8-1.3); EST CRCL DRUG DOSING (CG) 78.38 mL/min; ESTIMATED GFR 93 mL/min (>60); GLUCOSE RANDOM 114 mg/dL (74-106); POTASSIUM,K 3.7 mmol/L (3.6-5.2); PRO B-TYPE NATRIUR PEPT,BNPPRO 345 pg/mL (5-125); PROTEIN TOTAL,TP 7.5 g/dL (6.4-8.2); SODIUM,NA 143 mmol/L (140-148)
[2024-12-27] MEDS: Iopamidol 755 Mg/ML 100 ML Bottle IV ONE (13:52)
[2024-12-27] MEDS: Sodium Chloride 0.9% 10 ML Syringe FLUSH ONE (13:52)
[2024-12-27] MEDS: Alum Hydrox/Mag Hydrox/Simeth 15 ML, Lidocaine 2% 15 ML PO ONE (13:58)
[2024-12-27] MEDS: Ketorolac 15 MG/ML SDV IVPUSH ONE (16:21)
[2024-12-27 16:44] VITALS: BP 121/74; PULSE 74
== END 2024-12-27 16:29 | disposition home or self-care (01) ==
LOC: JP.ED 13:10
DX: M54.9 Dorsalgia, unspecified (principal); I10 Essential (primary) hypertension; E78.5 Hyperlipidemia, unspecified; I25.2 Old myocardial infarction; K21.9 Gastro-esophageal reflux disease without esophagitis; Z79.899 Other long term (current) drug therapy; Z88.0 Allergy status to penicillin
CPT/HCPCS: 36415; 71275; 80053; 83880; 84484; 85025; 85610; 85730; 93005; 96374; 99285; A9270; J1885; Q9967; 93010; 99284